=== PATIENT | female | born 1955 | race Caucasian/White ===

== ENCOUNTER → 2017-02-14 | Outpatient (REF) | payer OTHER | LOC: M SFHCWAGY 14:15 | PROVIDERS: ATTEND Nurse Practitioner Family | DX: Z12.4 Encounter for screening for malignant neoplasm of cervix (principal) ==

== ENCOUNTER → 2017-02-14 | Outpatient (CLI) | payer OTHER ==
--- NOTE | 2017-02-14 14:23 | REPMRS ---
Patient History The patient states she had a clinical breast exam in 02/2017. Patient is postmenopausal. Family history of pancreatic cancer in father at age 50 or over, colorectal cancer in maternal cousin, and colorectal cancer in maternal uncle. Digital Woman Screen Mammo: February 14, 2017 - Exam #: [id number] Bilateral CC and MLO view(s) were taken. Technologist: Gwendolyn Dunlap Technologist Prior study comparison: May 10, 2014, digital woman screen mammo performed at [facility]. March 16, 2013, digital woman screen mammo performed at [facility]. July 25, 2010, bilateral bilat screen digital mammo performed at [facility]. FINDINGS: The breast tissue is almost entirely fat. There has been no change in the appearance of the mammogram from the prior studies. There is no interval development of dominant mass, architectural distortion, or clustered microcalcification typical of malignancy. ASSESSMENT: BI-RADS/ACR category 1 mammogram. Negative. Recommendation Routine screening mammogram of both breasts in 1 year (for women over age 40). This mammogram was interpreted with the aid of an FDA-approved computer-aided dectection system. Electronically Signed By: Kvng Arboleda MD 02/14/17 [id number]
== END ==
LOC: M WHC 13:05
PROVIDERS: ATTEND Nurse Practitioner Family
DX: Z12.31 Encounter for screening mammogram for malignant neoplasm of breast (principal); Z78.0 Asymptomatic menopausal state

== ENCOUNTER 2017-05-05 13:37 | Outpatient (RCR) | payer OTHER | END 2017-05-08 | LOC: M PT 13:37 | PROVIDERS: ATTEND Physician Assistant | DX: Z51.89 Encounter for other specified aftercare (principal); M75.41 Impingement syndrome of right shoulder ==

== ENCOUNTER 2017-05-16 12:40 | Emergency (ER) | payer OTHER ==
[~2017-05-16] VITALS: Ht 162.6 cm; Wt 97.7 kg
[2017-05-16] MEDS ORDERED: SING10TA32 PO (12:50)
[2017-05-16] MEDS ORDERED: ZOCO80TA PO (12:50)
[2017-05-16] MEDS ORDERED: GLUC1CAP9 PO (12:50)
[2017-05-16] MEDS ORDERED: MULT1CHW39 PO (12:50)
[2017-05-16] MEDS ORDERED: XYZA5TAB2 PO (12:50)
[2017-05-16] MEDS ORDERED: VITA250L PO (12:50)
[2017-05-16] MEDS ORDERED: CVS20TAB PO (12:50)
--- NOTE | 2017-05-16 14:13 | REP ---
Clinical: Trauma. Technique: AP, lateral, bilateral oblique and sunrise views of the right knee. Comparison: 01/23/2016. Findings: Advanced, progressive tricompartmental osteoarthritic degenerative changes are appreciated. Findings include joint space narrowing, subchondral sclerosis, osteophytosis and cortical irregularity. A small suprapatellar effusion cannot be excluded. There is no evidence for acute fracture or dislocation. Impression: Tricompartmental osteoarthritic degenerative changes. No acute fracture or dislocation. Signed by Tc Vaca MD 05/16/2017 02:05 P
[2017-05-16] MEDS ORDERED: PERC5TAB12 PO (14:18)
[2017-05-16 14:27] VITALS: BP 118/73
== END 2017-05-16 14:37 | disposition home or self-care (01) ==
LOC: M ED 12:40
DX: M23.91 Unspecified internal derangement of right knee (principal); X50.9XXA Other and unspecified overexertion or strenuous movements or postures, initial encounter; Y92.019 Unspecified place in single-family (private) house as the place of occurrence of the external cause; Y93.89 Activity, other specified; Y99.8 Other external cause status; D64.9 Anemia, unspecified; Z98.0 Intestinal bypass and anastomosis status; Z79.899 Other long term (current) drug therapy

== ENCOUNTER 2017-06-06 11:00 | Outpatient (RCR) | payer OTHER ==
[~2017-06-06 11:00] MED LIST: CVS20TAB PO; GLUC1CAP9 PO; MULT1CHW39 PO; PERC5TAB12 PO; SING10TA32 PO; VITA250L PO; XYZA5TAB2 PO; ZOCO80TA PO
== END 2017-06-07 ==
LOC: M PT 11:00
PROVIDERS: ATTEND Orthopaedic Surgery
DX: Z51.89 Encounter for other specified aftercare (principal); M75.41 Impingement syndrome of right shoulder

== ENCOUNTER 2017-06-25 07:00 | Outpatient (RCR) | payer OTHER | END 2017-07-08 | LOC: M PT 07:00 | PROVIDERS: ATTEND Orthopaedic Surgery | DX: Z51.89 Encounter for other specified aftercare (principal); M75.41 Impingement syndrome of right shoulder; S83.8X1A Sprain of other specified parts of right knee, initial encounter ==

== ENCOUNTER → 2018-04-14 | Outpatient (REF) | payer OTHER | LOC: M LAB REF 12:47 | DX: R30.0 Dysuria (principal) ==

== ENCOUNTER → 2018-07-28 | Outpatient (CLI) | payer OTHER | LOC: M WHC 10:59 | DX: Z12.31 Encounter for screening mammogram for malignant neoplasm of breast (principal) | CPT/HCPCS: 77067 ==

== ENCOUNTER 2019-02-08 06:55 | Day surgery (SDC) | payer MEDICARE ==
[~2019-02-08] VITALS: Ht 162.6 cm; Wt 97.5 kg
[~2019-02-08 06:55] MED LIST changes: +ACET-897 PO; +BIOT1CAP2 PO; +CIDA500T2 PO; +COQ-100C5 PO; -CVS20TAB PO; +LEVOTAB10 PO; +MAGN400C PO; -MULT1CHW39 PO; +MULT200T7 PO; +NS 1,000 ML IV ONE; +OMEP20TA9 PO; +PRAV80TA2 PO; +PROAAER10 INH; +SOMA350T PO; +TRAM50TA2 PO
[2019-02-08] MEDS ORDERED: LIDOCAINE 2% INJ 100 MG/5 ML SDV (FOR ANES.) As Ordered ONE (07:02)
[2019-02-08] MEDS ORDERED: PROPOFOL 200 MG/20 ML VIAL As Ordered ONE (07:02)
--- NOTE | 2019-02-08 08:16 | ROOR ---
Patient Name: Meche Pepe Procedure Date: 02/08/2019 7:55 AM Date of : 1955 Age: 63 Room: [facility] Gender: Female Note Status: Finalized Procedure: Colonoscopy Indications: Colon cancer screening in patient at increased risk: Family history of colorectal cancer in multiple 2nd degree relatives Providers: Steven NGUYEN MD Referring MD: MARION SAENZ MD Requesting Provider: Medicines: Monitored Anesthesia Care Complications: No immediate complications. Procedure: Pre-Anesthesia Assessment: - The heart rate, respiratory rate, oxygen saturations, blood pressure, adequacy of pulmonary ventilation, and response to care were monitored throughout the procedure. The Colonoscope was introduced through the anus and advanced to the terminal ileum, with identification of the appendiceal orifice and IC valve. The colonoscopy was performed without difficulty. The patient tolerated the procedure well. The quality of the bowel preparation was good. Findings: The perianal and digital rectal examinations were normal. Mild sigmoid diverticulosis and small internal hemorrhoids. The exam was otherwise without abnormality on direct and retroflexion views. Impression: - Minimal sigmoid diverticulosis and small internal hemorrhoids. - The colon examination was otherwise normal on direct and retroflexion views. - No specimens collected. Recommendation: - Repeat colonoscopy in 5 years for screening purposes. Steven Nguyen MD Steven NGUYEN MD 02/08/2019 8:15:58 AM Electronically signed by Steven NGUYEN MD Number of Addenda: 0 Note Initiated On: 02/08/2019 7:55 AM Estimated Blood Loss: Estimated blood loss: none.
[2019-02-08 08:40] VITALS: BP 121/69
== END 2019-02-08 08:42 | disposition home or self-care (01) ==
LOC: M OPP 06:55
PROVIDERS: ATTEND Internal Medicine Gastroenterology
DX: K64.8 Other hemorrhoids (principal); K57.30 Diverticulosis of large intestine without perforation or abscess without bleeding; Z12.11 Encounter for screening for malignant neoplasm of colon; Z80.0 Family history of malignant neoplasm of digestive organs

== ENCOUNTER 2019-02-17 10:38 | Outpatient (RCR) | payer MEDICARE ==
[2019-02-24] MEDS ORDERED: SM HTAB3 PO (08:16)
[2019-02-24] MEDS ORDERED: ONE-1TAB PO (08:16)
== END 2019-03-07 ==
LOC: M PT 10:38
PROVIDERS: ATTEND Orthopaedic Surgery
DX: Z01.812 Encounter for preprocedural laboratory examination (principal); M17.11 Unilateral primary osteoarthritis, right knee

== ENCOUNTER → 2019-02-17 | Outpatient (CLI) | payer MEDICARE ==
[~2019-02-17] MED LIST changes: -NS 1,000 ML IV ONE
--- NOTE | 2019-02-17 13:27 | REP ---
Chest two views HISTORY: Preop Comparison: 03/20/2009 The lungs are clear. The heart is normal in size. The pulmonary vasculature is normal in appearance. The bony structure is intact. IMPRESSION: No acute disease. Electronically Signed by Jaime Olson MD 02/17/2019 01:19 P
[2019-02-17 13:31] LABS: HEMATOCRIT 42.2 % (36.0-47.0); HEMOGLOBIN 13.9 g/dl (12.0-15.5); MEAN CORPUSCULAR HGB CONC 32.9 g/dl (32.0-36.5); MEAN CORPUSCULAR VOLUME 100.2 fl (80.0-96.0); PLATELET COUNT, AUTOMATED 255 10^3/uL (150-450); RED BLOOD COUNT 4.21 10^6/uL (4.00-5.40); WHITE BLOOD COUNT 4.5 10^3/uL (4.0-10.0)
[2019-02-17 13:46] LABS: INR 0.94; PROTHROMBIN TIME 12.7 SECONDS (12.1-14.4)
[2019-02-17 13:56] LABS: APPEARANCE, URINE HAZY (CLEAR); BACTERIA, URINE AUTO NEGATIVE (NEGATIVE); BILIRUBIN, URINE AUTO NEGATIVE (NEGATIVE); BLOOD, URINE BLOOD NEGATIVE (NEGATIVE); CALCIUM OXALATE CRYSTALS SMALL; COLOR, URINE YELLOW (YELLOW); GLUCOSE, URINE (UA) AUTO NEGATIVE (NEGATIVE); KETONE, URINE AUTO NEGATIVE (NEGATIVE); LEUKOCYTE ESTERASE, URINE AUTO NEGATIVE (NEGATIVE); MUCUS, URINE SMALL (NEGATIVE); NITRITE, URINE AUTO NEGATIVE (NEGATIVE); PROTEIN, URINE AUTO NEGATIVE (NEGATIVE); RBC, URINE AUTO 1 /HPF (0-3); SPECIFIC GRAVITY URINE AUTO 1.026 (1.002-1.035); SQUAMOUS EPITHELIAL CELL UR AU 0 /HPF (0-6); UROBILINOGEN, URINE AUTO 0.2 mg/dL (0.0-2.0); WBC, URINE AUTO 1 /HPF (0-3)
[2019-02-17 14:04] LABS: ALT/SGPT 26 U/L (12-78); BILIRUBIN,TOTAL 0.6 MG/DL (0.2-1.0); BLOOD UREA NITROGEN 18 MG/DL (7-18); CALCIUM LEVEL 9.1 MG/DL (8.8-10.2); CARBON DIOXIDE LEVEL 28 MEQ/L (21-32); CHLORIDE LEVEL 108 MEQ/L (98-107); CREATININE FOR GFR 0.79 MG/DL (0.55-1.30); GLOMERULAR FILTRATION RATE > 60.0 (>45); GLUCOSE, FASTING 100 MG/DL (70-100); POTASSIUM SERUM 4.2 MEQ/L (3.5-5.1); SODIUM LEVEL 144 MEQ/L (136-145); TOTAL PROTEIN 6.6 GM/DL (6.4-8.2)
[2019-02-17 14:46] LABS: ERYTHROCYTE SEDIMENTATION RATE 11 mm/hr (0-30)
--- NOTE | 2019-02-18 08:14 | ECGEPIP ---
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
== END ==
LOC: M LAB 12:21
PROVIDERS: ATTEND Orthopaedic Surgery
DX: Z01.812 Encounter for preprocedural laboratory examination (principal); M17.11 Unilateral primary osteoarthritis, right knee; I45.10 Unspecified right bundle-branch block

== ENCOUNTER 2019-03-10 07:30 | Inpatient (IN) | payer MEDICARE ==
--- NOTE | 2019-03-01 13:14 | HPE ---
DATE OF ADMISSION: 03/10/2019 HISTORY OF PRESENT ILLNESS: This is a pleasant female with recurrent right knee osteoarthritic pain. She has consented for a right total knee arthroplasty per Dr. Gerardo Ram. Medical optimization per Dr. Quintana's office; I am still awaiting documentation clearance. X-rays are consistent with advanced osteoarthritis. ALLERGIES: The patient reports emesis secondary to MACROBID. MEDICATION LIST: Includes: - omeprazole 20 mg - Xyzal 5 mg - Singulair 10 mg - multivitamins - glucosamine - vitamin B12 5000 mcg - soma 350 mg - ProAir HFA 108 (90 base) mcg/ACT - pravastatin sodium 80 mg - Citracal Petites/vitamin D 200-250 mg-unit - Biotin 10,000 mcg - magnesium 400 mg - Co-Q 200 mg - Extra strength Tylenol 500 mg - allergy and sinus intense strength 25-10- 650 mg MEDICAL PROBLEM LIST: Includes right knee symptomatic osteoarthritis. Pure hypercholesteremia. Anemia. Gastroesophageal reflux disease. Obesity. SURGICAL HISTORY: de Quervain tendonitis release. Carpal tunnel right. Gastric bypass. Right arm lymphoma. Trigger finger left thumb. FAMILY HISTORY: Positive for diabetes, cancer, thyroid disease, arthritis, hypertension, hypercholesteremia. SOCIAL HISTORY: Denies smoking. Rare ethanol intake. REVIEW OF SYSTEMS: Denies chest pain, shortness of breath, dyspnea on exertion, fever, chills, malaise, upper respiratory or urinary tract symptoms. PREOPERATIVE LABORATORIES: Were reviewed as of 02/17/2019 via [facility]. MCV 100.2, chloride 108. Otherwise, laboratories made available to me were within normal limits. Please note that GFR was greater than [address] Ram's viewing. Chest x-ray, service date 02/17/2019, shows no acute disease read by Dr. Olson. Electrocardiogram (EKG): Sinus rhythm with marked sinus arrhythmia. Right bundle branch block as read by Dr. Steven Goins. The patient reports Dr. Quintana notes the bundle branch block is a new finding which they are aware of but does not circumvent her clearance. PHYSICAL EXAMINATION: Height 5 feet 3 inches, weight 214.8, temperature 97.7, blood pressure (BP) 120/62, pulse 62, respiration 18. She is a pleasant well-developed, well-nourished obese female in no acute distress. Alert and oriented times three. Mood and affect are appropriate. She is ambulating without overt antalgia. She has favoring the left lower extremity. Bilateral lower extremity skin intact. Benign noninfectious looking. Right knee tenderness about the joint line with crepitance to flexion and extension. Bowels soft, nontender, sounds times four. Chest rises symmetrically. Regular rate and rhythm. Lungs: Clear to auscultation. Neck: Supple. Negative jugular venous distention (JVD) or bruits. Normocephalic. IMPRESSION: 1. Right knee symptomatic degenerative joint disease (DJD). 2. The patient consented for a right total knee arthroplasty per Dr. Gerardo Ram. 3. Medical optimization with Dr. Quintana on 02/24/2019, which we are awaiting clearance note. 4. 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 5. Sequential compression device (SCD) and thromboembolic deterrents (TEDs) in OR. MTDD
[~2019-03-10] VITALS: Ht 162.6 cm; Wt 98.4 kg
[2019-03-10] VITALS (7 sets, daily range): BP systolic 106–128; BP diastolic 64–74
[~2019-03-10 07:30] MED LIST changes: +CelecoXIB (CeleBREX) 100 MG CAP PO ONE; +LIDOCAINE 1% MDV 20ML VIAL SQ PRN; +LR 1,000 ML IV ONE; +ONE-1TAB PO; +PERCOCET 5MG/325MG TAB PO ONE; +PREGABALIN 75 MG CAP(LYRICA) PO ONE; +SM HTAB3 PO; +ceFAZolin SOD 1 GM in D5W MINI-BAG PLUS 50 ML IV ONE
[2019-03-10] MEDS ORDERED: ceFAZolin SOD 1 GM in D5W MINI-BAG PLUS 50 ML IV ONE (08:15)
[2019-03-10] MEDS ORDERED: fentaNYL 100 MCG/2 ML INJECTION (J3010) As Ordered ONE ×2 (08:32→08:41)
[2019-03-10] MEDS ORDERED: LIDOCAINE 2% INJ 100 MG/5 ML SDV (FOR ANES.) As Ordered ONE (08:32)
[2019-03-10] MEDS ORDERED: PROPOFOL 200 MG/20 ML VIAL As Ordered ONE ×2 (08:32→12:14)
[2019-03-10] MEDS ORDERED: MIDAZOLAM INJ 2 MG/2 ML VIAL (J2250) As Ordered ONE ×2 (08:32→08:41)
[2019-03-10] MEDS ORDERED: ePHEDrine SULFATE 25 MG/5 ML(5MG/ML) SYRINGE As Ordered ONE (08:39)
[2019-03-10] MEDS ORDERED: BUPIVACAINE HCL 0.25% 30 ML VIAL As Ordered ONE (08:41)
[2019-03-10] MEDS ORDERED: BUPIVACAINE HCL 0.25% 10 ML VIAL As Ordered ONE (08:42)
[2019-03-10] MEDS ORDERED: **UNRESOLVED NON-FORMULARY MED ORDER XX SCH (09:00)
[2019-03-10] MEDS ORDERED: fentaNYL 100 MCG/2 ML INJECTION (J3010) IV ONE (10:31)
[2019-03-10] MEDS ORDERED: MIDAZOLAM INJ 2 MG/2 ML VIAL (J2250) IV ONE (10:32)
[2019-03-10] MEDS ORDERED: BUPIVACAINE/EPIN 0.25% 30 ML VIAL As Ordered ONE (10:36)
[2019-03-10] MEDS ORDERED: EPINEPHrine INJ 1 MG/ML 1ML AMP As Ordered ONE (10:36)
[2019-03-10] MEDS ORDERED: TRANEXAMIC ACID 100 MG/ML 10ML VIAL As Ordered ONE (10:36)
[2019-03-10] MEDS ORDERED: ceFAZolin 1GM INJ (J0690 PER 500MG) As Ordered ONE (10:36)
[2019-03-10] MEDS ORDERED: BUPIVACAINE LIPOSOME/PF 1.3% 20ML VIAL (13.3MG/ML)(EXPAREL)(C9290 PER1MG) As Ordered ONE (10:37)
[2019-03-10] MEDS ORDERED: LIDOCAINE 1% MDV 20ML VIAL ONE (10:54)
[2019-03-10] MEDS ORDERED: BUPIVACAINE HCL 0.5% 30 ML VIAL As Ordered ONE (12:51)
[2019-03-10] MEDS ORDERED: KETOROLAC 60 MG/2 ML VIAL (J1885) As Ordered ONE (12:52)
[2019-03-10] MEDS ORDERED: ONDANSETRON 4MG/2ML VIAL (J2405) As Ordered ONE (12:52)
[2019-03-10] MEDS ORDERED: PROMETHAZINE INJ 25 MG/ML VIAL (J2550) IV PRN ×2 (14:00→14:15)
[2019-03-10] MEDS ORDERED: NORTRIPTYLINE 10 MG CAP PO PRN (14:00)
[2019-03-10] MEDS ORDERED: FLEET ENEMA PR PRN (14:00)
[2019-03-10] MEDS ORDERED: ACETAMINOPHEN TAB 650MG DOSE (2X325MG) PO PRN ×2 (14:00)
[2019-03-10] MEDS ORDERED: oxyCODONE 5MG TAB PO PRN (14:15)
[2019-03-10] MEDS ORDERED: METOCLOPRAMIDE INJ 10MG/2ML VIAL (J2765) IV PRN (14:15)
[2019-03-10] MEDS ORDERED: LR 1,000 ML IV SCH (14:15)
[2019-03-10] MEDS ORDERED: ALBUTEROL 90 MCG/ACT 8GM HFA INHALER INH PRN (14:15)
[2019-03-10] MEDS ORDERED: fentaNYL 100 MCG/2 ML INJECTION (J3010) IV PRN (14:15)
--- NOTE | 2019-03-10 14:32 | REP ---
Clinical: Status post knee replacement. Technique AP and cross-table lateral views. Findings: The patient is status post right knee replacement with normal positioning and appearance to the femoral and tibial components. Overlying postsurgical changes appreciated. Impression: Status post right knee replacement. Electronically Signed by Tc Vaca MD 03/10/2019 02:23 P
--- NOTE | 2019-03-10 14:53 | CR.PDOC ---
General Date of Consultation: Mar 10, 2019 Referring Provider: A Consultation REASON FOR CONSULTATION/CHIEF COMPLAINT: Medical management. HISTORY OF PRESENT ILLNESS: This is a pleasant female with recurrent right knee osteoarthritic pain. Today she got the right total knee arthroplasty by orthopedics and we have been consulted for medical management. The patient does not have much medical history except for allergies and she recently had a PFT done which ruled out any asthma, she has a past medical history of osteoarthritis, GERD. She denies any complaint at this time. Denies any chest pain, denies any shortness of breath. Denies any fever, rigors or chills. The patient stated that she has never suffered from any clots in the past. ALLERGIES: The patient reports emesis secondary to MACROBID. MEDICATION LIST: Reviewed MEDICAL PROBLEM LIST: Includes right knee symptomatic osteoarthritis. Pure hypercholesteremia. Anemia. Gastroesophageal reflux disease. Obesity. SURGICAL HISTORY: de Quervain tendonitis release. Carpal tunnel right. Gastric bypass. Right arm lymphoma. Trigger finger left thumb. FAMILY HISTORY: Positive for diabetes, cancer, thyroid disease, arthritis, hypertension, hypercholesteremia. SOCIAL HISTORY: Denies smoking. Rare ethanol intake. REVIEW OF SYSTEMS: Denies chest pain, shortness of breath, dyspnea on exertion, fever, chills, malaise, upper respiratory or urinary tract symptoms. Electrocardiogram (EKG): Sinus rhythm with marked sinus arrhythmia. Right bundle branch block as read by Dr. Steven Goins. The patient reports Dr. Quintana notes the bundle branch block is a new finding which they are aware of but does not circumvent her clearance. PHYSICAL EXAMINATION: Height 5 feet 3 inches, weight 214.8, temperature 97.7, blood pressure (BP) 120/62, pulse 62, respiration 18. Gen. examination She is a pleasant well-developed, well-nourished obese female in no acute distress. Alert and oriented times three. Mood and affect are appropriate. Abdomen. Bowels soft, nontender, bowel sounds present Chest . Rises symmetrically. No rhonchi, no rales CVS : rate and rhythm regular. Lungs: Neck: Supple. Negative jugular venous distention (JVD) or bruits. Normocephalic. Extremities: Left knee in surgical dressing. The dressing looks dry. No foul- smelling discharge noticed. The right knee has no effusion, but mild crepitus. Nonpitting edema in bilateral lower extremities. Neurological: Cranial nerves II through XII are grossly normal. Vital Signs Date Time Temp Pulse Resp B/P (MAP) Pulse Ox O2 Delivery O2 Flow Rate FiO2 03/10/19 14:10 66 16 123/59 (80) 95 03/10/19 13:55 97.3 69 16 109/62 (78) 96 03/10/19 13:50 82 18 119/61 (80) 96 03/10/19 13:40 80 16 110/64 (79) 96 03/10/19 13:25 98.0 88 12 108/66 (80) 99 03/10/19 10:30 87 16 129/66 (87) 93 03/10/19 10:15 94 16 126/68 (87) 99 3 03/10/19 09:58 93 16 141/75 (97) 99 03/10/19 09:04 97.7 94 18 139/70 (93) 99 03/10/19 08:45 18 Assessment and plan 1. Right knee symptomatic degenerative joint disease (DJD). Status post total arthroplasty: Management as per orthopedics. Pain as per orthopedics. Activity as per orthopedics. DVT prophylaxis as per orthopedics. 2. EKG with right bundle branch block. We will get a baseline 2-D echo. 3. GERD. Continue PPIs Again, pain control, activity, DVT prophylaxis as per orthopedics We will continue to follow the patient Thank you for consulting. Vital Signs/I&O Vital Signs Date Time Temp Pulse Resp B/P (MAP) Pulse Ox O2 Delivery O2 Flow Rate FiO2 03/10/19 14:10 66 16 123/59 (80) 95 03/10/19 13:55 97.3 03/10/19 10:15 3 Allergies Coded Allergies: NSAIDS (Non-Steroidal Anti-Inflamma (Verified Adverse Reaction, Intermediate, 03/10/19) due tp gastric bypass nitrofurantoin (Verified Adverse Reaction, Intermediate, severe vomiting, 03/10/19) Home Medications Scheduled Albuterol Sulfate (Proair Hfa) 8.5 Gm Hfa.aer.ad, 2 PUFF INH PRN, (Reported) Biotin (Biotin) 1 Mg Capsule, 1 MG PO DAILY, (Reported) Carisoprodol (Soma) 350 Mg Tablet, 350 MG PO TIDP, (Reported) Cyanocobalamin (Vitamin B-12) (Vitamin B-12) 250 Mcg Damaris, 250 MCG PO DAILY, (Reported) Glucosamine/Chondr Sparks A Sod (Cidaflex Tablet) 1 Each Tablet, 2 TAB PO DAILY, (Reported) Levocetirizine Dihydrochloride (Levocetirizine Dihydrochloride) 5 Mg Tablet, 5 MG PO DAILY, (Reported) Magnesium Oxide (Magnesium) 400 Mg Capsule, 400 MG PO DAILY, (Reported) Montelukast Sodium (Singulair) 10 Mg Tab, 10 MG PO DAILY, (Reported) Multivitamin with Minerals (Hair, Skin and Nails) 1 Each Tablet, 1 TAB PO DAILY, (Reported) Multivitamin/Ferrous Sulfate (One-Daily Elgwe-Zfa-Wdia Tab) 18 Mg Tablet, 1 TAB PO DAILY, (Reported) Omeprazole (Omeprazole) 20 Mg Tab, 20 MG PO DAILY, (Reported) Pravastatin Sodium (Pravastatin Sodium) 80 Mg Tablet, 80 MG PO DAILY, (Reported) Tramadol HCl (Tramadol HCl) 50 Mg Tablet, 50 MG PO PRN, (Reported) Ubidecarenone (Coq-10) 100 Mg Capsule, 200 MG PO BID, (Reported) Scheduled PRN Acetaminophen (Tylenol Extra Strength) 500 Mg Tablet, 1,000 MG PO BID PRN for PAIN, (Reported) SHANNAN CASTLE MD Mar 10, 2019 14:53
[2019-03-10 16:11] LABS: BLOOD UREA NITROGEN 15 MG/DL (7-18); CALCIUM LEVEL 8.2 MG/DL (8.8-10.2); CARBON DIOXIDE LEVEL 30 MEQ/L (21-32); CHLORIDE LEVEL 108 MEQ/L (98-107); CREATININE FOR GFR 0.72 MG/DL (0.55-1.30); GLOMERULAR FILTRATION RATE > 60.0 (>45); GLUCOSE, FASTING 99 MG/DL (70-100); POTASSIUM SERUM 4.2 MEQ/L (3.5-5.1); SODIUM LEVEL 144 MEQ/L (136-145)
[2019-03-10] MEDS ORDERED: HYDROMORPHONE HCL 0.5 MG/ 0.5 ML SYRINGE (J1170 PER 1) IV PRN (16:15)
[2019-03-10] MEDS: D5W/LR 1,000 ML IV SCH (16:49)
[2019-03-10] MEDS: HYDROMORPHONE HCL 0.5 MG/ 0.5 ML SYRINGE (J1170 PER 1) IV PRN ×2 (16:49→20:57)
[2019-03-10] MEDS ORDERED: PILL CUTTER 1 EACH XX PRN (17:30)
[2019-03-10] MEDS: PERCOCET 5MG/325MG TAB PO PRN (18:49)
--- NOTE | 2019-03-10 19:16 | ECHO ---
DATE OF PROCEDURE: 03/10/2019 AGE: 63 GENDER: Female HEIGHT: 64 inches WEIGHT: 216 pounds BODY SURFACE AREA: 2.02 m2 PATIENT LOCATION: Inpatient [address] [place] [address], room 5144 REFERRING PHYSICIAN: Michael Lang MD INDICATION: Abnormal EKG. 2-D MEASUREMENTS: RV: 3.5 cm LV: 4.4 cm Septum: 0.9 cm Posterior wall: 0.9 cm Aortic root: 3.0 cm LA: 2.7 cm LVEF: 75% DOPPLER MEASUREMENTS: AV: 1.7 m/s LVOT: 1.1 m/s LVOT diameter: 2.0 cm MV-E: 55, A: 75, EA ratio: 0.7 Early mitral deceleration time: 183 ms E prime: 6.2, A prime: 14, E/E prime ratio: 8.9 PCWP: 11 mmHg PV: 1.1 m/s Pulmonary artery acceleration time: 110 ms RVSP: 41 - 46 mmHg IVC: 2.1 cm COMMENTS Normal sinus rhythm with right bundle branch block. Technically, somewhat challenging study in light of the patient's body habitus, but diagnostically useful information was still obtained. M-mode and two-dimensional echocardiography was performed with pulsed, continuous wave, color flow and tissue Doppler studies. Normal left ventricular size and wall thickness with hyperkinetic wall motion. Normal left atrial size with Doppler evidence of a degree of impaired LV diastolic function, but currently normal estimated mean left atrial pressure. Normal right heart chamber sizes and motion with Doppler evidence of moderate pulmonary hypertension. IVC size upper limits of normal with reduced respiratory collapse in keeping with an elevated central venous pressure. Mild aortic valvular sclerosis without functional abnormality. Normal aortic dimensions Normal-appearing mitral valve with very mild insufficiency (physiologic). Normal appearing tricuspid valve with at least mild insufficiency. No apparent intracardiac mass or pericardial effusion.
[2019-03-10] MEDS: CETIRIZINE (ZyrTEC) 10 MG TAB PO SCH (20:56)
[2019-03-10] MEDS: PRAVASTATIN 20 MG TAB PO SCH (20:56)
[2019-03-10] MEDS: MONTELUKAST 10 MG TAB PO SCH (20:56)
[2019-03-10] MEDS: OMEPRAZOLE 20 MG CAP PO SCH (20:56)
[2019-03-10 21:34] LABS: BLOOD UREA NITROGEN 15 MG/DL (7-18); CALCIUM LEVEL 7.9 MG/DL (8.8-10.2); CARBON DIOXIDE LEVEL 25 MEQ/L (21-32); CHLORIDE LEVEL 109 MEQ/L (98-107); CREATININE FOR GFR 0.73 MG/DL (0.55-1.30); GLOMERULAR FILTRATION RATE > 60.0 (>45); GLUCOSE, FASTING 131 MG/DL (70-100); POTASSIUM SERUM 4.1 MEQ/L (3.5-5.1); SODIUM LEVEL 142 MEQ/L (136-145)
[2019-03-11] MEDS: HYDROMORPHONE HCL 0.5 MG/ 0.5 ML SYRINGE (J1170 PER 1) IV PRN (02:39)
[2019-03-11] MEDS: D5W/LR 1,000 ML IV SCH (02:39)
[2019-03-11 03:00] VITALS: BP 136/72
[2019-03-11 06:00] VITALS: BP 130/70
[2019-03-11] MEDS: PERCOCET 5MG/325MG TAB PO PRN ×4 (06:04→20:43)
[2019-03-11] MEDS ORDERED: PERC5TAB12 PO (06:25)
[2019-03-11] MEDS ORDERED: XARE10TA PO (06:25)
[2019-03-11 06:40] LABS: BASO % 0.3 % (0.0-1.0); EOS % 0.5 % (0.0-3.0); HEMOGLOBIN 10.5 g/dl (12.0-15.5); LYMPH # 1.4 10^3/uL (1.5-4.5); LYMPH % 23.4 % (24.0-44.0); MEAN CORPUSCULAR HEMOGLOBIN 33.4 pg (27.0-33.0); MEAN CORPUSCULAR HGB CONC 32.8 g/dl (32.0-36.5); MEAN CORPUSCULAR VOLUME 101.9 fl (80.0-96.0); MONO # 0.7 10^3/uL (0.0-0.8); MONO % 11.5 % (0.0-5.0); NEUTROPHILS # 3.8 10^3/uL (1.8-7.7); NEUTROPHILS % 64.1 % (36.0-66.0); PLATELET COUNT, AUTOMATED 184 10^3/uL (150-450); RED BLOOD COUNT 3.14 10^6/uL (4.00-5.40); WHITE BLOOD COUNT 5.9 10^3/uL (4.0-10.0)
[2019-03-11 06:49] LABS: INR 1.05; PROTHROMBIN TIME 13.4 SECONDS (11.8-14.0)
[2019-03-11 06:59] LABS: BLOOD UREA NITROGEN 11 MG/DL (7-18); CALCIUM LEVEL 7.9 MG/DL (8.8-10.2); CARBON DIOXIDE LEVEL 29 MEQ/L (21-32); CHLORIDE LEVEL 105 MEQ/L (98-107); CREATININE FOR GFR 0.64 MG/DL (0.55-1.30); GLOMERULAR FILTRATION RATE > 60.0 (>45); GLUCOSE, FASTING 128 MG/DL (70-100); POTASSIUM SERUM 4.1 MEQ/L (3.5-5.1); SODIUM LEVEL 139 MEQ/L (136-145)
[2019-03-11] MEDS: METAMUCIL (PSYLLIUM) PACKET PO SCH (08:44)
[2019-03-11] MEDS: CARISOPRODOL 350 MG TAB PO SCH (08:44)
[2019-03-11] MEDS: MAGNESIUM OXIDE 400 MG TAB (MAG-OX) PO SCH (08:44)
[2019-03-11] MEDS: MOM 30ML SUSPENSION UDC PO SCH (08:45)
[2019-03-11] MEDS: MIRALAX *UNIT DOSE* 17GM PACKET PO SCH (08:45)
--- NOTE | 2019-03-11 10:30 | IPNPDOC ---
Text Note Date of Service The patient was seen on 03/11/19. NOTE Patient was seen and examined by me this morning. The patient states that her knee pain has worsened and she is getting Dilaudid for that which is helping PHYSICAL EXAMINATION: Gen. examination She is a pleasant well-developed, well-nourished obese female in no acute distress. Alert and oriented times three. Mood and affect are appropriate. Abdomen. Bowels soft, nontender, bowel sounds present Chest . Rises symmetrically. No rhonchi, no rales CVS : rate and rhythm regular. Lungs: Neck: Supple. Negative jugular venous distention (JVD) or bruits. Normocephalic. Extremities: Left knee in surgical dressing. The dressing looks dry. No foul- smelling discharge noticed. The right knee has no effusion, but mild crepitus. Nonpitting edema in bilateral lower extremities. Neurological: Cranial nerves II through XII are grossly normal. Assessment and plan 1. Right knee symptomatic degenerative joint disease (DJD). Status post total arthroplasty, postoperative day 1 : Management as per orthopedics. Pain as per orthopedics. Activity as per orthopedics. DVT prophylaxis as per orthopedics and currently patient has been put on Zaroxolyn. 2. EKG with right bundle branch block. Baseline 2-D echo was done, which does not reveal any systolic dysfunction or any hypokinesis. She will require outpatient follow-up with cardiology 3. GERD. Continue PPIs Again, pain control, activity, DVT prophylaxis as per orthopedics We will continue to follow the patient Thank you for consulting. VS,Ricardobone, I+O VS, Fishbone, I+O Laboratory Tests 03/10/19 15:32 Calcium Level 8.2 L 03/10/19 21:03 Calcium Level 7.9 L 03/11/19 06:21 Calcium Level 7.9 L, Red Blood Count 3.14 L, Mean Corpuscular Volume 101.9 H, Mean Corpuscular Hemoglobin 33.4 H, Mean Corpuscular Hemoglobin Concent 32.8, Red Cell Distribution Width 12.4, Neutrophils (%) (Auto) 64.1, Lymphocytes (%) (Auto) 23.4 L, Monocytes (%) (Auto) 11.5 H, Eosinophils (%) (Auto) 0.5, Basophils (%) (Auto) 0.3, Neutrophils # (Auto) 3.8, Lymphocytes # (Auto) 1.4 L, Monocytes # (Auto) 0.7, Eosinophils # (Auto) 0.0, Basophils # (Auto) 0.0 Vital Signs Date Time Temp Pulse Resp B/P (MAP) Pulse Ox O2 Delivery O2 Flow Rate FiO2 03/11/19 06:40 12 03/11/19 06:00 99.0 96 130/70 (90) 96 03/11/19 03:00 2.0 I&O- Last 24 Hours up to 6 AM 03/11/19 06:00 Intake Total 2825 ml Output Total 30 ml Balance 2795 ml SHANNAN CASTLE MD Mar 11, 2019 10:30
[2019-03-11 14:00] VITALS: BP 125/69
[2019-03-11] MEDS: RIVAROXABAN 10 MG TAB (XARELTO) PO SCH (18:18)
[2019-03-11] MEDS: CETIRIZINE (ZyrTEC) 10 MG TAB PO SCH (20:44)
[2019-03-11] MEDS: OMEPRAZOLE 20 MG CAP PO SCH (20:44)
[2019-03-11] MEDS: PRAVASTATIN 20 MG TAB PO SCH (20:44)
[2019-03-11] MEDS: MONTELUKAST 10 MG TAB PO SCH (20:44)
[2019-03-11] MEDS: MORPHINE 15 MG SA TAB PO SCH (21:26)
[2019-03-11 21:38] VITALS: BP 130/69
[2019-03-12] MEDS: PERCOCET 5MG/325MG TAB PO PRN ×4 (04:19→22:16)
[2019-03-12 06:15] VITALS: BP 129/69
[2019-03-12 06:27] LABS: BASO % 0.2 % (0.0-1.0); EOS # 0.1 10^3/uL (0.0-0.50); EOS % 1.2 % (0.0-3.0); HEMOGLOBIN 10.2 g/dl (12.0-15.5); LYMPH # 1.1 10^3/uL (1.5-4.5); LYMPH % 18.6 % (24.0-44.0); MEAN CORPUSCULAR HEMOGLOBIN 33.6 pg (27.0-33.0); MEAN CORPUSCULAR HGB CONC 32.9 g/dl (32.0-36.5); MONO # 0.7 10^3/uL (0.0-0.8); MONO % 11.3 % (0.0-5.0); NEUTROPHILS # 4.1 10^3/uL (1.8-7.7); NEUTROPHILS % 68.4 % (36.0-66.0); PLATELET COUNT, AUTOMATED 184 10^3/uL (150-450); RED BLOOD COUNT 3.04 10^6/uL (4.00-5.40)
[2019-03-12 06:53] LABS: BLOOD UREA NITROGEN 7 MG/DL (7-18); CALCIUM LEVEL 8.1 MG/DL (8.8-10.2); CARBON DIOXIDE LEVEL 29 MEQ/L (21-32); CHLORIDE LEVEL 109 MEQ/L (98-107); CREATININE FOR GFR 0.58 MG/DL (0.55-1.30); GLOMERULAR FILTRATION RATE > 60.0 (>45); GLUCOSE, FASTING 121 MG/DL (70-100); POTASSIUM SERUM 3.8 MEQ/L (3.5-5.1); SODIUM LEVEL 142 MEQ/L (136-145)
--- NOTE | 2019-03-12 08:29 | REP ---
Clinical: Fever. Comparison: 02/17/2019. Findings: Trace linear atelectasis in the left lower lung zone noted. Remainder examination appears normal. No further consolidation, effusion, or pneumothorax. Mediastinum and cardiac silhouette normal. Skeletal structures intact. Impression: Trace linear plate-like atelectasis in the left lower lobe Electronically Signed by Tc Vaca MD 03/12/2019 08:21 A
[2019-03-12] MEDS: CARISOPRODOL 350 MG TAB PO SCH (08:33)
[2019-03-12] MEDS: MORPHINE 15 MG SA TAB PO SCH ×2 (08:33→20:26)
[2019-03-12] MEDS: METAMUCIL (PSYLLIUM) PACKET PO SCH (08:33)
[2019-03-12] MEDS: MAGNESIUM OXIDE 400 MG TAB (MAG-OX) PO SCH (08:33)
[2019-03-12] MEDS: MOM 30ML SUSPENSION UDC PO SCH (09:00)
[2019-03-12] MEDS: MIRALAX *UNIT DOSE* 17GM PACKET PO SCH (09:00)
--- NOTE | 2019-03-12 10:18 | IPNPDOC ---
Text Note Date of Service The patient was seen on 03/12/19. NOTE Patient was seen and examined by me this morning. The patient states that her knee pain has worsened and she is getting Dilaudid for that which is helping. She also spiked fever last night PHYSICAL EXAMINATION: Gen. examination She is a pleasant well-developed, well-nourished obese female in no acute distress. Alert and oriented times three. Mood and affect are appropriate. Abdomen. Bowels soft, nontender, bowel sounds present Chest . Rises symmetrically. No rhonchi, no rales CVS : rate and rhythm regular. Lungs: Neck: Supple. Negative jugular venous distention (JVD) or bruits. Normocephalic. Extremities: Left knee in surgical dressing. The dressing looks dry. No foul- smelling discharge noticed. The right knee has no effusion, but mild crepitus. Nonpitting edema in bilateral lower extremities. Neurological: Cranial nerves II through XII are grossly normal. Assessment and plan 1. Right knee symptomatic degenerative joint disease (DJD). Status post total arthroplasty, postoperative day 2 : Management as per orthopedics. Pain as per orthopedics. Activity as per orthopedics. DVT prophylaxis as per orthopedics and currently patient has been put on xaralto 2. EKG with right bundle branch block. Baseline 2-D echo was done, which does not reveal any systolic dysfunction or any hypokinesis. She will require outpatient follow-up with cardiology 3. GERD. Continue PPIs 4. Febrile episodes.: No overt signs of sepsis. Lungs are clear auscultation. No diarrhea. Blood cultures, urine cultures and a chest x-ray will be done. We'll hold off the antibiotics for now as it could be reactive after surgery. Again, pain control, activity, DVT prophylaxis as per orthopedics We will continue to follow the patient Thank you for consulting. VS,Fishbone, I+O VS, Fishbone, I+O Laboratory Tests 03/12/19 06:03 Red Blood Count 3.04 L, Mean Corpuscular Volume 102.0 H, Mean Corpuscular Hemoglobin 33.6 H, Mean Corpuscular Hemoglobin Concent 32.9, Red Cell Distribution Width 12.4, Neutrophils (%) (Auto) 68.4 H, Lymphocytes (%) (Auto) 18.6 L, Monocytes (%) (Auto) 11.3 H, Eosinophils (%) (Auto) 1.2, Basophils (%) (Auto) 0.2, Neutrophils # (Auto) 4.1, Lymphocytes # (Auto) 1.1 L, Monocytes # (Auto) 0.7, Eosinophils # (Auto) 0.1, Basophils # (Auto) 0.0, Calcium Level 8.1 L Vital Signs Date Time Temp Pulse Resp B/P (MAP) Pulse Ox O2 Delivery O2 Flow Rate FiO2 03/12/19 09:30 18 03/12/19 06:43 100.4 03/12/19 06:15 102 129/69 (89) 96 03/11/19 03:00 2.0 I&O- Last 24 Hours up to 6 AM 03/12/19 06:00 Intake Total 1955 ml Output Total 0 ml Balance 1955 ml SHANNAN CASTLE MD Mar 12, 2019 10:18
[2019-03-12 14:00] VITALS: BP 95/57
[2019-03-12] MEDS: RIVAROXABAN 10 MG TAB (XARELTO) PO SCH (17:44)
[2019-03-12 19:00] VITALS: BP 109/64
[2019-03-12] MEDS: PRAVASTATIN 20 MG TAB PO SCH (20:25)
[2019-03-12] MEDS: CETIRIZINE (ZyrTEC) 10 MG TAB PO SCH (20:25)
[2019-03-12] MEDS: OMEPRAZOLE 20 MG CAP PO SCH (20:25)
[2019-03-12] MEDS: MONTELUKAST 10 MG TAB PO SCH (20:25)
[2019-03-12 21:58] VITALS: BP 130/77
--- NOTE | 2019-03-12 22:12 | RO ---
DATE OF PROCEDURE: 03/10/2019 PREPROCEDURE DIAGNOSIS: Valgus osteoarthritis of the right knee. POSTPROCEDURE DIAGNOSIS: Valgus osteoarthritis of the right knee. PROCEDURE: Right total knee replacement, rotating platform posterior stabilized. SURGEON: Dr. Gerardo Ram MANUFACTURING INSPECTOR: Bennett Maciel PA-C ANESTHESIA: Spinal with block. ESTIMATED BLOOD LOSS: Less than 50 mL, replaced with crystalloid. No complications. COMPONENTS USED: Include a DePuy Attune knee system, rotating platform, posterior stabilize cemented size 6 mm spacer, 5 femoral component, 5 base plate component, 32 button component. INDICATIONS: Progressive discomfort in the right knee. Patient elects for operative intervention. Consent reviewed in detail including a sonal discussion of the pathology involved, the procedure proposed, alternatives including doing nothing, and risks including but not limited to pain, failure, infection, bleeding, blood clots, incomplete relief, need for more surgery and other issues. Patient wants to proceed. DESCRIPTION OF PROCEDURE: Identified in the holding area, site and side verified, brought to the operating room once the block was accomplished, spinal was accomplished, positioned, sterilely prepped and draped in the usual fashion for exposure. A time-out was accomplished. Next, began the surgical procedure. Leg was elevated, tourniquet was inflated to 250 mmHg. Tourniquet time was approximately 75 minutes. Next, incision made with a #10-blade, developed down through the skin and subcuticular tissues to the extensor mechanism of the knee. A medial parapatellar arthrotomy was accomplished. The extensor mechanism was everted. Infrapatellar fat pad was removed. Supracondylar soft tissue removed from the anterior femur. A modest release medially was accomplished because of the valgus arthritis. Next, patella was everted, the knee was placed flexed. Distal cutting guide was drilled and installed. Distal cuts were made. Mr. Maciel utilized the Hohmann retractors to protect collateral ligaments. The AP sizing guide installed, pins were drilled, 4-in-1 cutting block installed, pinned into place. Anterior, posterior and chamfer cuts were made. The guide was then removed. Next, tibial guide installed, pinned into place, 4 off the bad side, 1 based on the ankle. Drop vamsi utilized to verify alignment with the second ray, about 3 degrees slope. Next, posterior retractor and Hohmann retractors installed, cuts were made with the oscillating saw, proximal tibia removed. Lamina basting cleaner installed, meniscus removed, posterior osteophytes removed sharply in both compartments. Next, spacer blocks installed, 6 mm spacer seemed to fit most appropriately in flexion and extension. Next, once this was accomplished, trial base plate installed, broach guide installed, large drill utilized followed by tibial broach. The broach was left in place. Trial base plate was left in place. Trial components were installed, placed through a range of motion, 6 mm was stable in flexion as well as extension without any evidence of valgus or varus instability. Next, patella everted, posterior patellar cut made with an oscillating saw, 32 mm patella trialed, fit appropriately, good tracking. Next, all trial components removed. Mr. Maciel stepped to the back table to prepare the bone cement. I utilized pulse lavage to prepare the bone surfaces. Once the bone cement was the appropriate consistency, we cemented the knee replacement into place. It was tamped into place. Non-trial rotating platform component was installed. Excess cement had been cleared with curettes. We also had injected Exparel solution into the posterior capsule, now placed the knee in extension, injected Exparel solution around the anterior capsule of the knee and anterior structures. Once the cement had hardened, clamp removed, TXA solution placed in the knee, arthrotomy was closed with interrupted and Stratafix stitch. Deep dermis approximated with interrupted stitch, Prineo dressing applied. Tourniquet was deflated, and the patient was moved to the recovery room in good condition. For further details, please refer to the medical record.
[2019-03-13] MEDS ORDERED: XARE10TA PO (06:14)
[2019-03-13 06:17] VITALS: BP 131/75
[2019-03-13] MEDS: PERCOCET 5MG/325MG TAB PO PRN ×2 (06:33→12:59)
[2019-03-13] MEDS: MOM 30ML SUSPENSION UDC PO SCH (09:00)
[2019-03-13] MEDS: METAMUCIL (PSYLLIUM) PACKET PO SCH (09:00)
[2019-03-13] MEDS: CARISOPRODOL 350 MG TAB PO SCH (09:32)
[2019-03-13] MEDS: MAGNESIUM OXIDE 400 MG TAB (MAG-OX) PO SCH (09:32)
[2019-03-13] MEDS: MORPHINE 15 MG SA TAB PO SCH (09:33)
[2019-03-13] MEDS: MIRALAX *UNIT DOSE* 17GM PACKET PO SCH (09:34)
--- NOTE | 2019-03-13 09:51 | IPNPDOC ---
Text Note Date of Service The patient was seen on 03/13/19. NOTE Patient was seen and examined by me this morning. No new complaints. No fevers overnight PHYSICAL EXAMINATION: Gen. examination She is a pleasant well-developed, well-nourished obese female in no acute distress. Alert and oriented times three. Mood and affect are appropriate. Abdomen. Bowels soft, nontender, bowel sounds present Chest . Rises symmetrically. No rhonchi, no rales CVS : rate and rhythm regular. Lungs: Neck: Supple. Negative jugular venous distention (JVD) or bruits. Normocephalic. Extremities: Left knee in surgical dressing. The dressing looks dry. No foul- smelling discharge noticed. The right knee has no effusion, but mild crepitus. Nonpitting edema in bilateral lower extremities. Neurological: Cranial nerves II through XII are grossly normal. Assessment and plan 1. Right knee symptomatic degenerative joint disease (DJD). Status post total arthroplasty, postoperative day 3 : Management as per orthopedics. Pain as per orthopedics. Activity as per orthopedics. DVT prophylaxis as per orthopedics and currently patient has been put on xaralto 2. EKG with right bundle branch block. Baseline 2-D echo was done, which does not reveal any systolic dysfunction or any hypokinesis. She will require outpatient follow-up with cardiology 3. GERD. Continue PPIs 4. Febrile episodes.: No overt signs of sepsis. Lungs are clear auscultation. No diarrhea. Blood cultures negative so far, it could be reactive after surgery. The patient is medically optimized and cleared for discharge with follow-up with PCP Again, pain control, activity, DVT prophylaxis as per orthopedics We will sign off and please reconsult if needed Thank you for consulting. VS,Fishbone, I+O VS, Fishbone, I+O Vital Signs Date Time Temp Pulse Resp B/P (MAP) Pulse Ox O2 Delivery O2 Flow Rate FiO2 03/13/19 09:33 20 03/13/19 06:17 99.6 99 131/75 (93) 93 03/11/19 03:00 2.0 I&O- Last 24 Hours up to 6 AM 03/13/19 06:00 Intake Total 1220 ml Output Total 650 ml Balance 570 ml SHANNAN CASTLE MD Mar 13, 2019 09:51
--- NOTE | 2019-03-16 18:59 | DSES ---
DATE OF ADMISSION: 03/10/2019 DATE OF DISCHARGE: 03/13/2019 ADMISSION DIAGNOSIS: Valgus osteoarthritis of the right knee. OTHER DIAGNOSES: 1. Hypercholesterolemia. 2. Anemia. 3. Gastroesophageal reflux disease. 4. Obesity. 5. Seasonal allergies. DISCHARGE DIAGNOSIS: Valgus osteoarthritis of the right knee status post right total knee arthroplasty. HISTORY: The patient is a 63-year-old female who had progressively worsening right knee pain and stiffness. She failed to improve with conservative measures. She continued to have symptoms with weightbearing activities and activities of daily living. The patient consented for an elective right total knee arthroplasty with Dr. Ram for her continued symptoms. OPERATION PERFORMED: Right total knee arthroplasty. HOSPITAL COURSE: The patient underwent a right total knee arthroplasty under spinal anesthesia with femoral nerve block. Surgery was uneventful, but she did have a few febrile episodes while inpatient. There were no overt signs of sepsis. No diarrhea. Blood cultures and urine cultures were negative. The patient was discharged on oral pain medications and will resume her preoperative medications and diet. She will followup with cardiology for right bundle branch block without systolic dysfunction or hypokinesis, which was noted during her preoperative physical. The patient will use her thromboembolic deterrent stockings and take her anticoagulant as directed to prevent deep venous thrombosis. She will followup in our office in approximately 12-14 days for a wound check. The patient is encouraged to contact our office sooner if there is any increase in pain, drainage, redness, numbness or tingling in the extremity, fever greater than 101 degrees, or any other concerns. Please see medical record for additional details.
== END 2019-03-13 13:42 | disposition home health service (06) | DRG 470 ==
LOC: M OR 07:47 → M MS5PR 14:25
PROVIDERS: ADMIT Orthopaedic Surgery; ATTEND Orthopaedic Surgery
PROC: 0SRC0J9 Replacement of Right Knee Joint with Synthetic Substitute, Cemented, Open Approach (ICD-10-PCS; principal; 2019-03-10 10:15)
DX: M17.11 Unilateral primary osteoarthritis, right knee (principal); E66.9 Obesity, unspecified; Z79.899 Other long term (current) drug therapy; Z88.8 Allergy status to other drugs, medicaments and biological substances; E78.00 Pure hypercholesterolemia, unspecified; K21.9 Gastro-esophageal reflux disease without esophagitis; I45.10 Unspecified right bundle-branch block; R50.82 Postprocedural fever

== ENCOUNTER → 2019-03-20 | Outpatient (REF) | payer MEDICARE ==
[~2019-03-20] MED LIST changes: -CelecoXIB (CeleBREX) 100 MG CAP PO ONE; -LIDOCAINE 1% MDV 20ML VIAL SQ PRN; -LR 1,000 ML IV ONE; -PERCOCET 5MG/325MG TAB PO ONE; -PREGABALIN 75 MG CAP(LYRICA) PO ONE; +XARE10TA PO; -ceFAZolin SOD 1 GM in D5W MINI-BAG PLUS 50 ML IV ONE
== END ==
LOC: M LAB REF 12:48
PROVIDERS: ATTEND Internal Medicine
DX: R19.7 Diarrhea, unspecified (principal)

== ENCOUNTER 2019-05-05 11:46 | Outpatient (RCR) | payer MEDICARE | END 2019-05-08 | LOC: M PT 11:46 | PROVIDERS: ATTEND Orthopaedic Surgery | DX: Z47.1 Aftercare following joint replacement surgery (principal); Z96.651 Presence of right artificial knee joint ==

== ENCOUNTER 2019-06-02 10:41 | Outpatient (RCR) | payer MEDICARE | END 2019-06-07 | LOC: M PT 10:41 | PROVIDERS: ATTEND Orthopaedic Surgery | DX: Z47.1 Aftercare following joint replacement surgery (principal); Z96.651 Presence of right artificial knee joint ==

== ENCOUNTER → 2020-01-27 | Outpatient (REF) | payer MEDICARE | LOC: M LAB REF 17:10 | PROVIDERS: ATTEND Dermatology | DX: L57.0 Actinic keratosis (principal); L57.8 Other skin changes due to chronic exposure to nonionizing radiation ==

== ENCOUNTER → 2020-02-11 | Outpatient (CLI) | payer MEDICARE ==
--- NOTE | 2020-02-11 14:08 | REPMRS ---
Patient History The patient states she has not had a clinical breast exam in over a year. Family history of colorectal cancer in maternal uncle, colorectal cancer in maternal cousin, pancreatic cancer at age 50 or over in father. 3D TOMOSYNTHESIS WAS PERFORMED. The Amber Phillips lifetime risk for breast cancer is 5.9%. VOLPARA BON B. Digital Woman Screen Mammo: February 11, 2020 - Exam #: [id number] Bilateral CC and MLO view(s) were taken. Technologist: Keily Sutherland, Technologist Prior study comparison: July 28, 2018, bilateral digital woman screen mammo performed at [facility]. February 14, 2017, digital woman screen mammo performed at [facility]. FINDINGS: There are scattered fibroglandular densities. There has been no change in the appearance of the mammogram from the prior studies. There is a mild amount of residual fibroglandular tissue which is fairly symmetric. There is no interval development of dominant mass, architectural distortion, or clustered microcalcification suggestive of malignancy. Assessment: BI-RADS/ACR category 1 mammogram. Negative Mammogram. Recommendation Routine screening mammogram in 1 year (for women over age 40). This mammogram was interpreted with the aid of an FDA-approved computer-aided dectection system. Electronically Signed By: Arvind Scott MD 02/11/20 [id number]
== END ==
LOC: M WHC 12:55
PROVIDERS: ATTEND Nurse Practitioner Women's Health
DX: Z12.31 Encounter for screening mammogram for malignant neoplasm of breast (principal); M81.0 Age-related osteoporosis without current pathological fracture

== ENCOUNTER → 2020-09-10 | Outpatient (REF) | payer MEDICARE | LOC: M LAB REF 10:41 | PROVIDERS: ATTEND Physician Assistant | DX: Z11.59 Encounter for screening for other viral diseases (principal) ==

== ENCOUNTER → 2020-11-02 | Outpatient (CLI) | payer MEDICARE ==
--- NOTE | 2020-11-07 02:23 | ECWPNPC ---
PATIENT NAME: FILI ONEIL : 1955 GENDER: FEMALE VISIT DATE: 11/02/2020 DISCHARGE DATE: 11/02/20 1427 VISIT LOCKED DATE TIME: PHYSICIAN: MARLENY ROSALES RESOURCE: MARLENY ROSALES REASON FOR APPOINTMENT 1. KNEE PAIN HISTORY OF PRESENT ILLNESS DEPRESSION SCREENING: PHQ-2 (2015 EDITION) LITTLE INTEREST OR PLEASURE IN DOING THINGS?NOT AT ALL FEELING DOWN, DEPRESSED, OR HOPELESS?NOT AT ALL TOTAL SCORE0 GENERAL: PLEASANT 65 Y/O FEMALE REFERRED BY PRIMARY CARE,DR MARION MAGAÑA FOR CHRONIC LEFT KNEE PAIN.HISTORY OF RIGHT TOTAL KNEE REPLACEMENT 18 MONTHS AGO AND SHE CONTINUES WITH RIGHT KNEE PAIN.SHE WOULD LIKE TO AVOID LEFT TOTAL KNEE AND IS INTERESTED IN PURSUING RADIOFREQUENCY OF LEFT KNEE IF POSSIBLE.- - -. FALL RISK SCREENING: SCREENING :NO FALLS REPORTED IN THE LAST YEAR PAIN SCREENING: PATIENT HAS A COMPLAINT OF ACUTE OR CHRONIC PAIN :YES LOCATION OF PAIN:KNEES BOTH KNEE, MOSTLY THE LEFT KNEE INTENSITY OF PAIN (SCALE OF 1 TO 10):5 WHAT DOES YOUR PAIN FEEL LIKE:SHARP, STABBING DURATION:INTERMITTENT PAIN IS INCREASED BY:ACTIVITIES PAIN IS DECREASED BY:USE OF PAIN MEDICATIONS NURSING NOTE: - - -. PAIN CENTER INTAKE QUESTIONS: DO YOU HAVE A HISTORY OF MRSA? :NO DO YOU TAKE A BLOOD THINNERS? :NO DO YOU HAVE ANY BLEEDING DISORDERS? :NO ANY NEW NUMBNESS OR WEAKNESS IN YOUR LEGS OR ARMS? :NO ANY PACEMAKER,DEFIBRILLATOR, OR DORSAL COLUMN STIMULATOR? :NO DO YOU HAVE ANY RASHES OR OPEN SORES? :NO ARE YOU ALLERGIC TO IV DYE? :NO ARE YOU DIABETIC? :NO ANY NEW PROBLEMS WITH YOUR MEDICATIONS? :NO HAVE YOU RECEIVED A VACCINE IN THE PAST 30 DAYS? :YES IF SO WHAT VACCINE AND WHEN? COVID 10/15/20 DO YOU PLAN TO RECEIVE A VACCINE IN THE NEXT 21 DAYS? :YES IF SO WHAT VACCINE AND WHEN? COVID 2ND 11/14/20 DO YOU NEED ANY PRESCRIPTION? :NO DO YOU TAKE ANY IMMUNOSUPPRESSIVE MEDICATIONS? :NO CURRENT MEDICATIONS TAKING SHINGRIX 50 MCG/0.5 ML SUSPENSION DIRECTED INTRAMUSCULAR _ TAKING SHINGRIX 50 MCG/0.5 ML SUSPENSION DIRECTED INTRAMUSCULAR _ TAKING MONTELUKAST SODIUM 10 MG TABLET 1 TABLET ORALLY ONCE A DAY TAKING ATORVASTATIN CALCIUM 80 MG TABLET 1 TABLET ORALLY ONCE A DAY TAKING CO Q-10 200 MG CAPSULE 1 CAPSULE WITH A MEAL ORALLY ONCE A DAY TAKING TRAMADOL HCL 50 MG TABLET 1 TABLET NEEDED ORALLY TAKING CARISOPRODOL 350 MG TABLET 1 TABLET NEEDED ORALLY FOUR TIMES A DAY TAKING OMEPRAZOLE 20MG 20MG CAPSULE 1 CAP(S) P.O. ONCE A DAY TAKING TYLENOL EXTRA STRENGTH 500 MG TABLET 1 TABLET NEEDED ORALLY EVERY 6 HRS TAKING PROAIR HFA 108 (90 BASE) MCG/ACT AEROSOL SOLUTION 2 PUFF NEEDED INHALATION TAKING MULTIVITAMIN - TABLET 1 TABLET ORALLY ONCE A DAY TAKING BIOTIN 1000 MCG TABLET 2 TABLET ORALLY ONCE A DAY TAKING CITRACAL +D3 250-107-500 MG-MG-UNIT TABLET CHEWABLE DIRECTED ORALLY TAKING SINGULAIR 10 MG TABLET 1 TABLET ORALLY ONCE A DAY TAKING HAIR SKIN NAILS - CAPSULE DIRECTED ORALLY TAKING CA CIT-VIT D-VIT K-MINERALS 200 MG TABLET DIRECTED ORALLY TAKING PROBIOTIC - CAPSULE DIRECTED ORALLY TAKING ARTIFICIAL TEAR TAKING LIPITOR 80 MG TABLET 1 TABLET ORALLY ONCE A DAY TAKING XYZAL ALLERGY 24HR 5 MG TABLET ORALLY TAKING VITAMIN B12 5000 MCG 1 TABLET ORALLY NOT-TAKING LEVOCETIRIZINE DIHYDROCHLORIDE 5 MG TABLET 1 TABLET IN THE EVENING ORALLY ONCE A DAY NOT-TAKING MAGNESIUM 400 MG CAPSULE DIRECTED ORALLY NOT-TAKING SINGULAIR 10 MG TABLET 1 TABLET ORALLY ONCE A DAY NOT-TAKING SOMA 350 MG TABLET 1 TABLET NEEDED ORALLY NOT-TAKING BIOTIN 13192 MCG MEDICATION LIST REVIEWED AND RECONCILED WITH THE PATIENT PAST MEDICAL HISTORY POSTMENOPAUSE GERD ENVIRONMENTAL ALLERGIES MORBID OBESITY, LOST 110# THRU BYPASS, HAVE GAINED 30# ARTHRITIS SCIATICA HYPERLIPIDEMIA COLON POLYPS FIRST COLONOSCOPY (AGE 49) 2004 ANEMIA C DIFF ALLERGIES MACROBID: NAUSEA/VOMITING - SIDE EFFECTS ENVIRONMENTAL ALLERGIES SURGICAL HISTORY RT CARPAL TUNNEL 04/05/09 RT LIPOMA RT ARM 04/05/09 RELEASE OF RT AND LT TENDON WRIST 04/05/09 GASTRIC BYPASS 2010 TRIGGER FINGER RELEASE LEFT THUMB 11/2011 COLONOSCOPY (DAVID MARTINEZ REINDL) 2004, 2007, 12/2013,2018 RIGHT TOTAL KNEE REPLACEMNET 03/2019 FAMILY HISTORY FATHER: 78 YRS, LUNG AND LIVER CANCER MOTHER: 78 YRS, PNEUMONIA, DEMENTIA SIBLINGS: ALIVE 71 YRS, BROTHER-DX WITH LEUKEMIA. ONE BROTHER AND ONE SISTER, ALIVE AT 66 & 62RESPECTIVELY, BCC, DOING WELL. REMAINING SIBLINGS ALIVE AND WELL SON(S): ALIVE 39,36 YRS, OLDEST-ANXIETY. YOUNGER-GOUT AND HYPERLIPIDEMIA 2 BROTHER(S) , 2 SISTER(S) - HEALTHY. 2 SON(S) - HEALTHY. DENIES BREAST OR OVARIAN CANCERS. MATERNAL COUSIN-COLON CANCER, DX MID 50'S, NOW 67.MATERNAL AUNT HAD MELANOMA BROTHER BASAL CELL CARCINOMADENIES FAMILY HX OF PANCREATIC CANCER. SOCIAL HISTORY GENERAL: TOBACCO USE ARE YOU A:NONSMOKER LATEX QUESTIONNAIRE LATEX ALLERGY : HAVE YOU EVER DEVELOPED ANY TYPE OF REACTION AFTER HANDLING LATEX PRODUCTS SUCH RUBBER GLOVES, CONDOMS, DIAPHRAGMS, BALLOONS, SOCKS, OR UNDERWEAR?NO LATEX ALLERGY : HAVE YOU EVER DEVELOPED ANY TYPE OF REACTION DURING OR AFTER DENTAL APPOINTMENT, VAGINAL/RECTAL EXAMINATION, SURGICAL PROCEDURE, OR ANY OTHER EXPOSURE?NO LATEX RISK : HAVE YOU EVER HAD ANY DIFFICULTY BREATHING OR HIVES AFTER EATING OR HANDLING ANY FRUITS, OR VEGETABLES; SUCH KIWI, BANANAS, STONE FRUITS, OR CHESTNUTSNO LATEX RISK : DO YOU HAVE A PREVIOUS PERSONAL HISTORY OF MORE THAN NINE SURGERIES, SPINA BIFIDA, OR REPEATED CATHERIZATIONS? NO LATEX RISK : ARE YOU FREQUENTLY EXPOSED TO LATEX PRODUCTS IN YOUR OCCUPATION?NO DATE ASKED : 11/02/2020 ALCOHOL USE: YES. BMI CARE GOAL FOLLOW-UP ABOVE NORMAL BMI FOLLOW-UPGIVING ENCOURAGEMENT TO EXERCISE ALCOHOL SCREENING DID YOU HAVE A DRINK CONTAINING ALCOHOL IN THE PAST YEAR?YES HOW OFTEN DID YOU HAVE SIX OR MORE DRINKS ON ONE OCCASION IN THE PAST YEAR?NEVER (0 POINTS) HOW MANY DRINKS DID YOU HAVE ON A TYPICAL DAY WHEN YOU WERE DRINKING IN THE PAST YEAR?1 OR 2 (0 POINTS) HOW OFTEN DID YOU HAVE A DRINK CONTAINING ALCOHOL IN THE PAST YEAR?TWO TO FOUR TIMES A MONTH (2 POINTS) POINTS2 INTERPRETATIONNEGATIVE RECREATIONAL DRUG USE DENIES. CAFFEINE NONE. SEXUAL HX HAD SEX IN THE LAST 12 MONTHS (VAGINAL, ORAL, OR ANAL)?NO LMP:POST MENOPAUSE HAVE YOU EVER HAD AN STD?NO PRESYBETERIAN [id number] FAITH LANGUAGE LANGUAGES SPOKEN:LEBANESE LEARNING BARRIERS / SPECIAL NEEDS CHANGE FROM LAST VISIT?NO BARRIERS TO LEARNING?NO HEARING IMPAIRED?NO VISION IMPAIRED?YES :CORRECTIVE LENSES COGNITIVELY IMPAIRED?NO READINESS TO LEARN?YES LEARNING PREFERENCES?NO LEARNING CAPABILITIES PRESENT?YES EMOTIONAL BARRIERS?NO SPECIAL DEVICES?NO CLOTH EXAMINER HAND NEEDED?NO DOMESTIC VIOLENCE DENIES, 05/10/14 HITS=N/A, NO PARTNER. 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 DIET: REGULAR, NO HX EATING DISORDER. EXERCISE: 2 X WK, WALKS. MARITAL STATUS: , PASSED IN 1990 ([facility]) AT 34. OTHERS AT HOME: LIVES ALONE. HOSPITALIZATION/MAJOR DIAGNOSTIC PROCEDURE UTI 1999 SEE ABOVE REVIEW OF SYSTEMS CONSTITUTIONAL: ANY RECENT FEVER NO . CHILLS NO . WEIGHT CHANGE OF UNKNOWN REASONS NO . GASTROENTEROLOGY: NEW UNEXPLAINABLE CHANGES IN BOWEL CONTROL NO . CONSTIPATION NO . GENITOURINARY: ANY NEW CHANGE IN BLADDER CONTROL? NO . NEUROLOGY: NEW ONSET DIZZINESS OR NEUROLOGICAL CHANGES NOT MENTIONED NO . NEW NUMBNESS OR PAIN PATTERNS NOT MENTIONED AND PERTINENT TO TODAY'S VISIT NO . CARDIOLOGY: NEW CHEST PRESSURE NO . PATIENT DENIES NO . RESPIRATORY: UNEXPLAINABLE COUGH NO . NEW SHORTNESS OF BREATH NO . VITAL SIGNS WT 220 LBS, HT 63.25 IN, BMI 38.66 INDEX, BP 134/79 MM HG, HR 94 /MIN, RR 18 /MIN, TEMP 97.3 F, OXYGEN SAT % 98, SAFE IN ENV? (Y/N) YEST.ROCK SHARIF. EXAMINATION GENERAL EXAMINATION: GENERALNO ACUTE DISTRESS, WELL NOURISHED AND HYDRATED. PSYCHAPPROPRIATE MOOD AND AFFECT . FACE:UNREMARKABLE. NECK:NO LYMPHADENOPATHY, SUPPLE. LUNGS:CLEAR TO AUSCULTATION BILATERALLY, NO WHEEZES, RHONCHI, RALES. HEART:NO MURMURS, REGULAR RATE AND RHYTHM. EXTREMITIES: TENDERNESS NOTED OVER LEFT KNEE.NO REDDNESS OR SWELLING. ASSESSMENTS PAIN IN LEFT KNEE - M25.562 (PRIMARY) OTHER CHRONIC PAIN - G89.29 TREATMENT PAIN IN LEFT KNEE [facility] MRI KNEE WITHOUT [id number], NICOLE 11/02/2020 02:32:22 PM > MRI LEFT KNEE WITHOUT CONTRAST ILYA GARCIA 11/02/2020 02:32:31 PM > MRI LEFT KNEE WITHOUT CONTRAST NOTES: F/U WITH DR DEL VALLE TO REVIEW MRI LEFT KNEE AND DISCUSS POSSIBILITY OF DIAGNOSTIC BLOCK OF LEFT KNEE. PROCEDURE CODES FA211 ESTABILISHED PATIENT [facility] FAC[facility] CHARGE DISPOSITION & COMMUNICATION FOLLOW UP DR DEL VALLE F/U- (REASON: LEFT KNEE PAIN/REVIEW MRI LEFT KNEE/DISCUSS OSSIBILITY OF RF LEFT KNEE) ELECTRONICALLY SIGNED BY LUCINDA LONDON ON 11/06/2020 AT 07:10 PM EST DISCLAIMER : THIS IS A VISIT SUMMARY EXTRACTED FROM THE [employer] CHART. IT IS NOT A COPY OF THE [employer] PROGRESS NOTE. SUZE
== END ==
LOC: M PAIN 13:00
PROVIDERS: ATTEND Nurse Practitioner Family
DX: M25.562 Pain in left knee (principal); G89.29 Other chronic pain; K21.9 Gastro-esophageal reflux disease without esophagitis; Z98.84 Bariatric surgery status; Z96.651 Presence of right artificial knee joint; Z88.1 Allergy status to other antibiotic agents; Z79.899 Other long term (current) drug therapy

== ENCOUNTER → 2020-11-14 | Outpatient (CLI) | payer MEDICARE ==
--- NOTE | 2020-11-15 09:25 | REP ---
INDICATION: PAIN IN LEFT KNEE. COMPARISON: None. TECHNIQUE: Multiple sequences obtained in the axial, coronal and sagittal planes. FINDINGS: Menisci: There is extensive complex tear of the anterior and posterior horns of the lateral meniscus, with maceration. There is a complex tear of the body and posterior horn of the medial meniscus. Cruciate ligaments: Intact. Collateral ligaments: Intact. Extensor mechanism/patellar retinacula: Intact. Cartilage: There is mild to moderate diffuse chondromalacia of the patella and the adjacent femoral notch. There is diffuse severe chondromalacia of the lateral femoral condyle and tibial plateau. There is mild to moderate diffuse chondromalacia of the medial femoral condyle and tibial plateau. Bone marrow: There is mild subchondral marrow edema in the tibial plateaus. There is diffuse moderate spurring of the femoral condyles and tibial plateaus. Joint fluid: There is a moderate to large complex joint effusion with synovial thickening in the suprapatellar bursa, as well as a suprapatellar plica. Popliteal region: A Camp's cyst is present, measuring approximately 5.7 x 1.4 x 1.3 cm. IMPRESSION: Negative MRI of the knee. <Electronically signed by Arvind Scott > 11/15/20 0922
== END ==
LOC: M RAD 17:38
PROVIDERS: ATTEND Nurse Practitioner Family
DX: M25.562 Pain in left knee (principal); M79.605 Pain in left leg

== ENCOUNTER → 2020-11-17 | Outpatient (CLI) | payer MEDICARE ==
--- NOTE | 2020-11-22 00:04 | ECWPNPC ---
PATIENT NAME: IFLI ONEIL : 1955 GENDER: FEMALE VISIT DATE: 11/17/2020 DISCHARGE DATE: 11/17/20 1207 VISIT LOCKED DATE TIME: PHYSICIAN: BRANDAN DEL VALLE MD RESOURCE: BRANDAN DEL VALLE MD REASON FOR APPOINTMENT 1. LEFT KNEE PAIN/REVIEW MRI LEFT KNEE/DISCUSS OSSIBILITY OF RF LEFT KNEE HISTORY OF PRESENT ILLNESS GENERAL: 65-YEAR-OLD FEMALE PATIENT WITH A HISTORY OF CHRONIC LEFT KNEE PAIN. THE PATIENT DESCRIBES THE PAIN SHARP, ACHING AT TIMES AND SOMETIMES STABBING WITH A PAIN SCORE RANGING FROM 5-9/10 OVER THE LEFT KNEE. THIS PAIN GETS WORSE WITH WALKING AND PROLONGED STANDING AND GETS BETTER WITH REST. SHE HAD A RIGHT TOTAL KNEE REPLACEMENT. SHE WAS INFORMED THAT SHE CAN HAVE A TOTAL KNEE REPLACEMENT ON THE LEFT SIDE, BUT SHE IS NOT COMPLETELY SATISFIED WITH THE RIGHT SIDE. SHE HAS SOME IMPROVEMENT BUT SHE STILL HAVE SOME RESIDUAL PAIN. SHE KNOWS THAT SHE HAS TO STILL GIVE IT SOME TIME, BUT SHE IS LOOKING FOR OTHER ALTERNATIVES WITH THE LEFT KNEE BEFORE MOVING FORWARD WITH THE KNEE REPLACEMENT ON THAT SIDE. FALL RISK SCREENING: SCREENING : NO FALLS REPORTED IN THE LAST YEAR. PAIN SCREENING: PATIENT HAS A COMPLAINT OF ACUTE OR CHRONIC PAIN :YES LOCATION OF PAIN:KNEES LEFT KNEE INTENSITY OF PAIN (SCALE OF 1 TO 10):6 WHAT DOES YOUR PAIN FEEL LIKE:SHARP DURATION:INTERMITTENT PAIN IS INCREASED BY:ACTIVITIES PROLONGED WALKING, PROLONGED SITTING PAIN IS DECREASED BY:OTHERS REST NURSING NOTE: -. PAIN CENTER INTAKE QUESTIONS: DO YOU HAVE A HISTORY OF MRSA? :NO DO YOU TAKE A BLOOD THINNERS? :NO DO YOU HAVE ANY BLEEDING DISORDERS? :NO ANY NEW NUMBNESS OR WEAKNESS IN YOUR LEGS OR ARMS? :NO ANY PACEMAKER,DEFIBRILLATOR, OR DORSAL COLUMN STIMULATOR? :NO DO YOU HAVE ANY RASHES OR OPEN SORES? :NO ARE YOU ALLERGIC TO IV DYE? :NO ARE YOU DIABETIC? :NO ANY NEW PROBLEMS WITH YOUR MEDICATIONS? :NO HAVE YOU RECEIVED A VACCINE IN THE PAST 30 DAYS? :YES IF SO WHAT VACCINE AND WHEN? 2ND COVID VACCINE 11/14/20 DO YOU PLAN TO RECEIVE A VACCINE IN THE NEXT 21 DAYS? :NO DO YOU NEED ANY PRESCRIPTION? :NO DO YOU TAKE ANY IMMUNOSUPPRESSIVE MEDICATIONS? :NO DO YOU HAVE ANY KIDNEY OR LIVER DISEASE? :NO IS THERE A CHANCE YOU COULD BE ? :NO ARE YOU BREAST FEEDING? :NO CURRENT MEDICATIONS TAKING SHINGRIX 50 MCG/0.5 ML SUSPENSION DIRECTED INTRAMUSCULAR _ TAKING MONTELUKAST SODIUM 10 MG TABLET 1 TABLET ORALLY ONCE A DAY TAKING ATORVASTATIN CALCIUM 80 MG TABLET 1 TABLET ORALLY ONCE A DAY TAKING CO Q-10 200 MG CAPSULE 1 CAPSULE WITH A MEAL ORALLY ONCE A DAY TAKING TRAMADOL HCL 50 MG TABLET 1 TABLET NEEDED ORALLY TAKING CARISOPRODOL 350 MG TABLET 1 TABLET NEEDED ORALLY FOUR TIMES A DAY TAKING OMEPRAZOLE 20MG 20MG CAPSULE 1 CAP(S) P.O. ONCE A DAY TAKING TYLENOL EXTRA STRENGTH 500 MG TABLET 1 TABLET NEEDED ORALLY EVERY 6 HRS TAKING PROAIR HFA 108 (90 BASE) MCG/ACT AEROSOL SOLUTION 2 PUFF NEEDED INHALATION TAKING MULTIVITAMIN - TABLET 1 TABLET ORALLY ONCE A DAY TAKING BIOTIN 1000 MCG TABLET 2 TABLET ORALLY ONCE A DAY TAKING CITRACAL +D3 250-107-500 MG-MG-UNIT TABLET CHEWABLE DIRECTED ORALLY TAKING SINGULAIR 10 MG TABLET 1 TABLET ORALLY ONCE A DAY TAKING HAIR SKIN NAILS - CAPSULE DIRECTED ORALLY TAKING CA CIT-VIT D-VIT K-MINERALS 200 MG TABLET DIRECTED ORALLY TAKING PROBIOTIC - CAPSULE DIRECTED ORALLY TAKING ARTIFICIAL TEAR TAKING LIPITOR 80 MG TABLET 1 TABLET ORALLY ONCE A DAY TAKING XYZAL ALLERGY 24HR 5 MG TABLET ORALLY TAKING VITAMIN B12 5000 MCG 1 TABLET ORALLY NOT-TAKING SHINGRIX 50 MCG/0.5 ML SUSPENSION DIRECTED INTRAMUSCULAR _, NOTES: DUPLICATE NOT-TAKING LEVOCETIRIZINE DIHYDROCHLORIDE 5 MG TABLET 1 TABLET IN THE EVENING ORALLY ONCE A DAY NOT-TAKING MAGNESIUM 400 MG CAPSULE DIRECTED ORALLY NOT-TAKING SINGULAIR 10 MG TABLET 1 TABLET ORALLY ONCE A DAY NOT-TAKING SOMA 350 MG TABLET 1 TABLET NEEDED ORALLY NOT-TAKING BIOTIN 00466 MCG MEDICATION LIST REVIEWED AND RECONCILED WITH THE PATIENT PAST MEDICAL HISTORY POSTMENOPAUSE GERD ENVIRONMENTAL ALLERGIES MORBID OBESITY, LOST 110# THRU BYPASS, HAVE GAINED 30# ARTHRITIS SCIATICA HYPERLIPIDEMIA COLON POLYPS FIRST COLONOSCOPY (AGE 49) 2004 ANEMIA C DIFF ALLERGIES MACROBID: NAUSEA/VOMITING - SIDE EFFECTS ENVIRONMENTAL ALLERGIES SURGICAL HISTORY RT CARPAL TUNNEL 04/05/09 RT LIPOMA RT ARM 04/05/09 RELEASE OF RT AND LT TENDON WRIST 04/05/09 GASTRIC BYPASS 2010 TRIGGER FINGER RELEASE LEFT THUMB 11/2011 COLONOSCOPY (DAVID MARTINEZ REINDL) 2004, 2007, 12/2013,2019 RIGHT TOTAL KNEE REPLACEMNET 03/2019 SOCIAL HISTORY GENERAL: TOBACCO USE ARE YOU A:NONSMOKER LATEX QUESTIONNAIRE LATEX ALLERGY : HAVE YOU EVER DEVELOPED ANY TYPE OF REACTION AFTER HANDLING LATEX PRODUCTS SUCH RUBBER GLOVES, CONDOMS, DIAPHRAGMS, BALLOONS, SOCKS, OR UNDERWEAR?NO LATEX ALLERGY : HAVE YOU EVER DEVELOPED ANY TYPE OF REACTION DURING OR AFTER DENTAL APPOINTMENT, VAGINAL/RECTAL EXAMINATION, SURGICAL PROCEDURE, OR ANY OTHER EXPOSURE?NO LATEX RISK : HAVE YOU EVER HAD ANY DIFFICULTY BREATHING OR HIVES AFTER EATING OR HANDLING ANY FRUITS, OR VEGETABLES; SUCH KIWI, BANANAS, STONE FRUITS, OR CHESTNUTSNO LATEX RISK : DO YOU HAVE A PREVIOUS PERSONAL HISTORY OF MORE THAN NINE SURGERIES, SPINA BIFIDA, OR REPEATED CATHERIZATIONS? NO LATEX RISK : ARE YOU FREQUENTLY EXPOSED TO LATEX PRODUCTS IN YOUR OCCUPATION?NO DATE ASKED : 11/02/2020 ALCOHOL USE: YES. BMI CARE GOAL FOLLOW-UP ABOVE NORMAL BMI FOLLOW-UPGIVING ENCOURAGEMENT TO EXERCISE ALCOHOL SCREENING DID YOU HAVE A DRINK CONTAINING ALCOHOL IN THE PAST YEAR?YES HOW OFTEN DID YOU HAVE SIX OR MORE DRINKS ON ONE OCCASION IN THE PAST YEAR?NEVER (0 POINTS) HOW MANY DRINKS DID YOU HAVE ON A TYPICAL DAY WHEN YOU WERE DRINKING IN THE PAST YEAR?1 OR 2 (0 POINTS) HOW OFTEN DID YOU HAVE A DRINK CONTAINING ALCOHOL IN THE PAST YEAR?TWO TO FOUR TIMES A MONTH (2 POINTS) POINTS2 INTERPRETATIONNEGATIVE RECREATIONAL DRUG USE DENIES. CAFFEINE NONE. SEXUAL HX HAD SEX IN THE LAST 12 MONTHS (VAGINAL, ORAL, OR ANAL)?NO LMP:POST MENOPAUSE HAVE YOU EVER HAD AN STD?NO CONFUCIANIST [id number] CONGREGATION LANGUAGE LANGUAGES SPOKEN:MOLDOVAN LEARNING BARRIERS / SPECIAL NEEDS CHANGE FROM LAST VISIT?NO BARRIERS TO LEARNING?NO HEARING IMPAIRED?NO VISION IMPAIRED?YES :CORRECTIVE LENSES COGNITIVELY IMPAIRED?NO READINESS TO LEARN?YES LEARNING PREFERENCES?NO LEARNING CAPABILITIES PRESENT?YES EMOTIONAL BARRIERS?NO SPECIAL DEVICES?YES : HAS CANE AND WALKER, NOT USING CURRENTLY RAKER BUFFING WHEEL NEEDED?NO DOMESTIC VIOLENCE DENIES, 05/10/14 HITS=N/A, NO PARTNER. 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 DIET: REGULAR, NO HX EATING DISORDER. EXERCISE: 2 X WK, WALKS. MARITAL STATUS: , PASSED IN 1990 ([facility]) AT 34. OTHERS AT HOME: LIVES ALONE. REVIEW OF SYSTEMS CONSTITUTIONAL: ANY RECENT FEVER NO . CHILLS NO . WEIGHT CHANGE OF UNKNOWN REASONS NO . GASTROENTEROLOGY: NEW UNEXPLAINABLE CHANGES IN BOWEL CONTROL NO . CONSTIPATION NO . GENITOURINARY: ANY NEW CHANGE IN BLADDER CONTROL? NO . NEUROLOGY: NEW ONSET DIZZINESS OR NEUROLOGICAL CHANGES NOT MENTIONED NO . NEW NUMBNESS OR PAIN PATTERNS NOT MENTIONED AND PERTINENT TO TODAY'S VISIT NO . CARDIOLOGY: NEW CHEST PRESSURE NO . PATIENT DENIES NO . RESPIRATORY: UNEXPLAINABLE COUGH NO . NEW SHORTNESS OF BREATH NO . VITAL SIGNS WT 223.2 LBS, HT 63.25 IN, BMI 39.22 INDEX, BP 147/70 MM HG, HR 96 /MIN, RR 18 /MIN, TEMP 96.9 F, OXYGEN SAT % 98%, SAFE IN ENV? (Y/N) YES, NA INITIALS AW 1037, REVIEWED BY: APA. ARIANA RN. EXAMINATION GENERAL EXAMINATION: THE PATIENT IS ALERT, ORIENTED TIMES THREE AND COOPERATIVE. LUNGS ARE CLEAR TO AUSCULTATION. HEART SHOWS REGULAR RHYTHM, NO MURMURS AND NO GALLOPS. THE PATIENT IS LIMPING FROM THE LEFT LEG. THE LEFT LEG IS WEAKER THAN THE RIGHT LEG ON EXTENSION AND FLEXION. THERE IS SOME CREPITATIONS IN THE MOVEMENTS OF THE LEFT KNEE. THE PATIENT HAS TENDERNESS OVER THE LATERAL ASPECT OF THE LEFT KNEE AT THE LEFT LOWER BORDER OF THE PATELLA. LEFT KNEE MRI DATED 11/14/2020 SHOWS THERE ARE SOME TEARS OF THE MENISCUS, THERE IS SOME CHONDROMALACIA OVER THE PATELLA, THERE IS SEVERE CHONDROMALACIA OVER THE FEMORAL CONDYLE. THERE ARE NO COLOR CHANGES OR ISCHEMIC CHANGES. THE SCAR ON THE RIGHT SIDE IS 7 INCHES LONG. THE RIGHT KNEE IS HURTING OVER THE LATERAL ASPECT JUST BELOW THE PATELLA. 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 ONEIL. WE AGREE ON DOING SOME DIAGNOSTIC TESTS OVER THE LEFT KNEE IN THE OPERATING ROOM WITH PROPOFOL. I EXPRESSED MY CONCERNS WITH HER OF WHERE HER PAIN IS LOCATED. I WILL CALL DR. KAUR TO DISCUSS THIS WITH HIM. THE PATIENT REPORTS UNDERSTANDING AND AGREES WITH THE PLAN. I, KAYLA BLAKE, DOCUMENTED THE ABOVE INFORMATION ACTING A SCRIBE FOR DR. DEL VALLE. I HAVE REVIEWED THE ABOVE DOCUMENT, WRITTEN BY KAYLA BLAKE, MARINE ELECTRONICS TECHNICIAN, AND I VERIFY THAT IT IS ACCURATE. PROCEDURE CODES FA211 ESTABILISHED PATIENT [facility] CHARGE [id number] OFFICE/OUTPATIENT VISIT EST DISPOSITION & COMMUNICATION FOLLOW UP REQUEST AUTH FOR LEFT KNEE DIAGNOSTIC TEST, IN [place] (REASON: PATIENT WILL NEED A PRESEDATE APPOINTMENT, DON'T BOOK YET) ELECTRONICALLY SIGNED BY BRANDAN DEL VALLE MD, ON 11/21/2020 AT 03:53 PM EDT DISCLAIMER : THIS IS A VISIT SUMMARY EXTRACTED FROM THE [employer] CHART. IT IS NOT A COPY OF THE [employer] PROGRESS NOTE. SUZE
== END ==
LOC: M PAIN 10:30
PROVIDERS: ATTEND Anesthesiology
DX: M94.262 Chondromalacia, left knee (principal); M25.562 Pain in left knee; G89.29 Other chronic pain; K21.9 Gastro-esophageal reflux disease without esophagitis; Z98.84 Bariatric surgery status; Z96.651 Presence of right artificial knee joint; Z88.1 Allergy status to other antibiotic agents; Z79.899 Other long term (current) drug therapy

== ENCOUNTER → 2020-12-08 | Outpatient (CLI) | payer MEDICARE ==
--- NOTE | 2020-12-13 08:10 | ECWPNPC ---
PATIENT NAME: FILI ONEIL : 1955 GENDER: FEMALE VISIT DATE: 12/08/2020 DISCHARGE DATE: 12/08/20 1502 VISIT LOCKED DATE TIME: PHYSICIAN: BRANDAN DEL VALLE MD RESOURCE: BRANDAN DEL VALLE MD REASON FOR APPOINTMENT 1. PRESEDATE LEFT KNEE DIAGNOSTIC TEST HISTORY OF PRESENT ILLNESS GENERAL: 65-YEAR-OLD FEMALE PATIENT WITH A HISTORY OF CHRONIC LEFT KNEE PAIN. THE PATIENT DESCRIBES THE PAIN ACHING AND SHARP WITH A PAIN SCORE RANGING FROM 6-10/10 OVER THE LEFT KNEE. THE PAIN GETS WORSE WITH WALKING AND PROLONGED STANDING AND GETS BETTER WITH REST. THE PATIENT HAS A RIGHT KNEE REPLACEMENT. WE HAVE DISCUSSED DOING A DIAGNOSTIC KNEE BLOCK OF THE GENICULAR NERVE. WE AGREE ON DOING IT WITH PROPOFOL DUE TO THE DISCOMFORT ASSOCIATED WITH THE PROCEDURE. FALL RISK SCREENING: SCREENING : NO FALLS REPORTED IN THE LAST YEAR. PAIN SCREENING: PATIENT HAS A COMPLAINT OF ACUTE OR CHRONIC PAIN :YES LOCATION OF PAIN:KNEES LEFT INTENSITY OF PAIN (SCALE OF 1 TO 10):8 WHAT DOES YOUR PAIN FEEL LIKE:STABBING, THROBBING DURATION:INTERMITTENT PAIN IS INCREASED BY:ACTIVITIES, PROLONGED STANDING, OTHERS PROLONGED WALKING PAIN IS DECREASED BY:OTHERS RESTING NURSING NOTE: -. PAIN CENTER INTAKE QUESTIONS: DO YOU HAVE A HISTORY OF MRSA? :NO DO YOU TAKE A BLOOD THINNERS? :NO DO YOU HAVE ANY BLEEDING DISORDERS? :NO ANY NEW NUMBNESS OR WEAKNESS IN YOUR LEGS OR ARMS? :NO ANY PACEMAKER,DEFIBRILLATOR, OR DORSAL COLUMN STIMULATOR? :NO DO YOU HAVE ANY RASHES OR OPEN SORES? :NO ARE YOU ALLERGIC TO IV DYE? :NO ARE YOU DIABETIC? :NO ANY NEW PROBLEMS WITH YOUR MEDICATIONS? :NO HAVE YOU RECEIVED A VACCINE IN THE PAST 30 DAYS? :YES IF SO WHAT VACCINE AND WHEN? 2ND COVID VACCINE 11/14/20 DO YOU PLAN TO RECEIVE A VACCINE IN THE NEXT 21 DAYS? :NO DO YOU NEED ANY PRESCRIPTION? :NO DO YOU TAKE ANY IMMUNOSUPPRESSIVE MEDICATIONS? :NO DO YOU HAVE ANY KIDNEY OR LIVER DISEASE? :NO IS THERE A CHANCE YOU COULD BE ? :NO ARE YOU BREAST FEEDING? :NO CURRENT MEDICATIONS TAKING ATORVASTATIN CALCIUM 80 MG TABLET 1 TABLET ORALLY ONCE A DAY TAKING CO Q-10 200 MG CAPSULE 1 CAPSULE WITH A MEAL ORALLY ONCE A DAY TAKING TRAMADOL HCL 50 MG TABLET 1 TABLET NEEDED ORALLY TAKING CARISOPRODOL 350 MG TABLET 1 TABLET NEEDED ORALLY FOUR TIMES A DAY TAKING OMEPRAZOLE 20MG 20MG CAPSULE 1 CAP(S) P.O. ONCE A DAY TAKING TYLENOL EXTRA STRENGTH 500 MG TABLET 1 TABLET NEEDED ORALLY EVERY 6 HRS TAKING PROAIR HFA 108 (90 BASE) MCG/ACT AEROSOL SOLUTION 2 PUFF NEEDED INHALATION TAKING MULTIVITAMIN - TABLET W/ IRON; 2 TABLETS ORALLY ONCE A DAY TAKING BIOTIN 1000 MCG TABLET 2 TABLET ORALLY ONCE A DAY TAKING CITRACAL +D3 250-107-500 MG-MG-UNIT TABLET CHEWABLE 1 TAB ORALLY BID TAKING SINGULAIR 10 MG TABLET 1 TABLET ORALLY ONCE A DAY TAKING HAIR SKIN NAILS - CAPSULE DIRECTED ORALLY DAILY TAKING ARTIFICIAL TEAR 1 DROP NEEDED TAKING XYZAL ALLERGY 24HR 5 MG TABLET 1 TABLET IN THE EVENING ORALLY DAILY TAKING VITAMIN B12 5000 MCG 1 TABLET ORALLY DAILY TAKING ALIGN - CAPSULE DIRECTED ORALLY DAILY NOT-TAKING SHINGRIX 50 MCG/0.5 ML SUSPENSION DIRECTED INTRAMUSCULAR _ NOT-TAKING MONTELUKAST SODIUM 10 MG TABLET 1 TABLET ORALLY ONCE A DAY, NOTES: DUPLICATE NOT-TAKING CA CIT-VIT D-VIT K-MINERALS 200 MG TABLET DIRECTED ORALLY , NOTES: DUPLICATE NOT-TAKING PROBIOTIC - CAPSULE DIRECTED ORALLY NOT-TAKING LIPITOR 80 MG TABLET 1 TABLET ORALLY ONCE A DAY, NOTES: DUPLICATE NOT-TAKING SHINGRIX 50 MCG/0.5 ML SUSPENSION DIRECTED INTRAMUSCULAR _, NOTES: DUPLICATE NOT-TAKING LEVOCETIRIZINE DIHYDROCHLORIDE 5 MG TABLET 1 TABLET IN THE EVENING ORALLY ONCE A DAY NOT-TAKING MAGNESIUM 400 MG CAPSULE DIRECTED ORALLY NOT-TAKING SINGULAIR 10 MG TABLET 1 TABLET ORALLY ONCE A DAY NOT-TAKING SOMA 350 MG TABLET 1 TABLET NEEDED ORALLY NOT-TAKING BIOTIN 96217 MCG MEDICATION LIST REVIEWED AND RECONCILED WITH THE PATIENT PAST MEDICAL HISTORY POSTMENOPAUSE GERD ENVIRONMENTAL ALLERGIES MORBID OBESITY, LOST 110# THRU BYPASS, HAVE GAINED 30# ARTHRITIS SCIATICA HYPERLIPIDEMIA COLON POLYPS FIRST COLONOSCOPY (AGE 49) 2004 ANEMIA C DIFF ALLERGIES MACROBID: NAUSEA/VOMITING - SIDE EFFECTS ENVIRONMENTAL ALLERGIES SOCIAL HISTORY GENERAL: TOBACCO USE ARE YOU A:NONSMOKER LATEX QUESTIONNAIRE LATEX ALLERGY : HAVE YOU EVER DEVELOPED ANY TYPE OF REACTION AFTER HANDLING LATEX PRODUCTS SUCH RUBBER GLOVES, CONDOMS, DIAPHRAGMS, BALLOONS, SOCKS, OR UNDERWEAR?NO LATEX ALLERGY : HAVE YOU EVER DEVELOPED ANY TYPE OF REACTION DURING OR AFTER DENTAL APPOINTMENT, VAGINAL/RECTAL EXAMINATION, SURGICAL PROCEDURE, OR ANY OTHER EXPOSURE?NO LATEX RISK : HAVE YOU EVER HAD ANY DIFFICULTY BREATHING OR HIVES AFTER EATING OR HANDLING ANY FRUITS, OR VEGETABLES; SUCH KIWI, BANANAS, STONE FRUITS, OR CHESTNUTSNO LATEX RISK : DO YOU HAVE A PREVIOUS PERSONAL HISTORY OF MORE THAN NINE SURGERIES, SPINA BIFIDA, OR REPEATED CATHERIZATIONS? NO LATEX RISK : ARE YOU FREQUENTLY EXPOSED TO LATEX PRODUCTS IN YOUR OCCUPATION?NO DATE ASKED : 11/02/2020 ALCOHOL USE: YES. BMI CARE GOAL FOLLOW-UP ABOVE NORMAL BMI FOLLOW-UPGIVING ENCOURAGEMENT TO EXERCISE ALCOHOL SCREENING DID YOU HAVE A DRINK CONTAINING ALCOHOL IN THE PAST YEAR?YES HOW OFTEN DID YOU HAVE SIX OR MORE DRINKS ON ONE OCCASION IN THE PAST YEAR?NEVER (0 POINTS) HOW MANY DRINKS DID YOU HAVE ON A TYPICAL DAY WHEN YOU WERE DRINKING IN THE PAST YEAR?1 OR 2 (0 POINTS) HOW OFTEN DID YOU HAVE A DRINK CONTAINING ALCOHOL IN THE PAST YEAR?TWO TO FOUR TIMES A MONTH (2 POINTS) POINTS2 INTERPRETATIONNEGATIVE RECREATIONAL DRUG USE DENIES. CAFFEINE NONE. 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 DIET: REGULAR, NO HX EATING DISORDER. EXERCISE: 2 X WK, WALKS. MARITAL STATUS: , PASSED IN 1990 ([facility]) AT 34. OTHERS AT HOME: LIVES ALONE. REVIEW OF SYSTEMS GLAUCOMA: NOTHYROID DISEASE: NOHYPERTENSION: NOHEART DISEASE: NOLUNG DISEASE: HISTORY OF BRONCHITIS DIABETES: NOGI DISEASE: HISTORY OF C. DIFF FOLLOWING ANTIBIOTICS LIVER DISEASE: NO KIDNEY DISEASE: NOSTERIOD USE: NONEUROLOGICAL DISEASE: NOBACK PROBLEMS: NOEXTREMITIES: NOGENITOURINARY: HISTORY OF UTIBLEEDING DISORDER: NOASA CLASS: II AIRWAY CLASS: I. VITAL SIGNS WT 222.4 LBS, HT 63.25 IN, BMI 39.08 INDEX, BP 127/64 MM HG, HR 106 /MIN, RR 18 /MIN, TEMP 96.0 F, OXYGEN SAT % 96%, SAFE IN ENV? (Y/N) YES, NA INITIALS AW 1416, REVIEWED BY: Antoinette VILLANUEVA RN. EXAMINATION GENERAL EXAMINATION: THERE IS TENDERNESS IN THE LATERAL ASPECT OF THE LEFT KNEE. THE PATIENT IS LIMPING FROM THE LEFT LEG. HER WALK IS ANTALGIC. THE PATIENT IS ALERT, ORIENTED TIMES THREE AND COOPERATIVE. MRI OF THE LEFT KNEE 11/26 IS SHOWING SOME TEARS AND CHONDROMALACIA. 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 ONEIL. WE AGREE ON DOING A LEFT DIAGNOSTIC KNEE BLOCK IN THE OR WITH PROPOFOL DUE TO THE DISCOMFORT ASSOCIATED WITH THE PROCEDURE. THE PATIENT REPORTS UNDERSTANDING AND AGREES WITH THE PLAN. I, KAYLA BLAKE, DOCUMENTED THE ABOVE INFORMATION ACTING A SCRIBE FOR DR. DEL VALLE. I HAVE REVIEWED THE ABOVE DOCUMENT, WRITTEN BY KAYLA BLAKE, SCRAP PREPARER, AND I VERIFY THAT IT IS ACCURATE. PROCEDURE CODES FA211 ESTABILISHED PATIENT [facility] CHARGE 55410 OFFICE/OUTPATIENT VISIT EST DISPOSITION & COMMUNICATION FOLLOW UP F/UP 2 WEEKS AFTER 12/20 (REASON: POST LEFT DIAGNOSTIC KNEE BLOCK #1) ELECTRONICALLY SIGNED BY BRANDAN DEL VALLE MD, ON 12/12/2020 AT 03:14 PM EDT DISCLAIMER : THIS IS A VISIT SUMMARY EXTRACTED FROM THE [employer] CHART. IT IS NOT A COPY OF THE [employer] PROGRESS NOTE. MTDD
== END ==
LOC: M PAIN 14:15
PROVIDERS: ATTEND Anesthesiology
DX: M94.262 Chondromalacia, left knee (principal); M25.562 Pain in left knee; G89.29 Other chronic pain; K21.9 Gastro-esophageal reflux disease without esophagitis; Z88.1 Allergy status to other antibiotic agents; Z79.899 Other long term (current) drug therapy

== ENCOUNTER → 2020-12-20 | Outpatient (CLI) | payer MEDICARE ==
[~2020-12-20] MED LIST changes: +AMOX500C PO; +ATOR80TA59; +CITRTAB18 PO; +PRES10CA2 PO
== END ==
LOC: M LABSMTC 12:34
PROVIDERS: ATTEND Anesthesiology
DX: Z01.812 Encounter for preprocedural laboratory examination (principal); Z20.822 Contact with and (suspected) exposure to COVID-19

== ENCOUNTER 2020-12-25 10:41 | Day surgery (SDC) | payer MEDICARE ==
[~2020-12-25] VITALS: Ht 162.6 cm; Wt 102.4 kg
[~2020-12-25 10:41] MED LIST changes: +LR 1,000 ML IV ONE
[2020-12-25] MEDS ORDERED: propofoL 200 MG/20 ML VIAL As Ordered ONE (13:21)
[2020-12-25] MEDS ORDERED: LIDOCAINE 2% 100MG/5ML SDV (FOR ANES.) As Ordered ONE (13:26)
[2020-12-25] MEDS ORDERED: ISOVUE-300 61% 50ML VIAL As Ordered ONE (13:28)
[2020-12-25] MEDS ORDERED: LIDOCAINE 1% SDV 30ML VIAL As Ordered ONE (13:28)
[2020-12-25] MEDS ORDERED: BUPIVACAINE HCL 0.5% 10ML VIAL As Ordered ONE (13:28)
[2020-12-25] MEDS ORDERED: BUPIVACAINE HCL 0.25% 10ML VIAL As Ordered ONE (13:48)
[2020-12-25 16:05] VITALS: BP 129/71
--- NOTE | 2020-12-25 16:14 | REP ---
INDICATION: CHONDROMALACIA, LEFT KNEE. COMPARISON: None. TECHNIQUE: Six views. 242.4 seconds of fluoroscopy time is reported. FINDINGS: A sequence of 6 last image hold fluoroscopically obtained spot radiographs taken about the left knee document various needle positions and contrast injections associated with injection procedure. IMPRESSION: Procedural imaging. <Electronically signed by Kvng Arboleda > 12/25/20 1268
== END 2020-12-25 16:20 | disposition home or self-care (01) ==
LOC: M SDC 10:41
PROVIDERS: ATTEND Anesthesiology
DX: M94.262 Chondromalacia, left knee (principal); M25.562 Pain in left knee; E78.5 Hyperlipidemia, unspecified; K21.9 Gastro-esophageal reflux disease without esophagitis; J45.909 Unspecified asthma, uncomplicated; Z79.899 Other long term (current) drug therapy; Z88.8 Allergy status to other drugs, medicaments and biological substances
CPT/HCPCS: 64454; 76000; Q9967

== ENCOUNTER → 2021-01-09 | Outpatient (CLI) | payer MEDICARE ==
[~2021-01-09] MED LIST changes: -LR 1,000 ML IV ONE
--- NOTE | 2021-01-11 02:54 | ECWPNPC ---
PATIENT NAME: FILI ONEIL : 1955 GENDER: FEMALE VISIT DATE: 01/09/2021 DISCHARGE DATE: 01/09/21 1150 VISIT LOCKED DATE TIME: PHYSICIAN: MARLENY ROSALES RESOURCE: MARLENY ROSALES REASON FOR APPOINTMENT 1. POST LEFT DIAGNOSTIC KNEE BLOCK #1 HISTORY OF PRESENT ILLNESS GENERAL: HERE FOR POST PROCEDURE FOLLOW-UP. HAD LEFT KNEE DIAGNOSTIC TESTING ON 12/25/2020. PATIENT REPORTS SEVERE PAIN AND NO USE OF PROPOFOL PLANNED. SHE REFUSES TO HAVE THIS DONE AGAIN. SHE IS GETTING SOME THERAPEUTIC EFFECT FROM THE TEST. PAIN INCREASES WITH ACTIVITY. -. FALL RISK SCREENING: SCREENING : NO FALLS REPORTED IN THE LAST YEAR. PAIN SCREENING: PATIENT HAS A COMPLAINT OF ACUTE OR CHRONIC PAIN :YES LOCATION OF PAIN:KNEES LEFT KNEE INTENSITY OF PAIN (SCALE OF 1 TO 10):0 WHAT DOES YOUR PAIN FEEL LIKE:OTHER NOT FEELING ANY PAIN TODAY DURATION:ONLY WITH SPECIFIC ACTIVITIES PAIN IS INCREASED BY:ACTIVITIES, PROLONGED STANDING PAIN IS DECREASED BY:SITTING NURSING NOTE: -. PAIN CENTER INTAKE QUESTIONS: DO YOU HAVE A HISTORY OF MRSA? :NO DO YOU TAKE A BLOOD THINNERS? :NO DO YOU HAVE ANY BLEEDING DISORDERS? :NO ANY NEW NUMBNESS OR WEAKNESS IN YOUR LEGS OR ARMS? :NO ANY PACEMAKER,DEFIBRILLATOR, OR DORSAL COLUMN STIMULATOR? :NO DO YOU HAVE ANY RASHES OR OPEN SORES? :NO ARE YOU ALLERGIC TO IV DYE? :NO ARE YOU DIABETIC? :NO ANY NEW PROBLEMS WITH YOUR MEDICATIONS? :NO HAVE YOU RECEIVED A VACCINE IN THE PAST 30 DAYS? :NO DO YOU PLAN TO RECEIVE A VACCINE IN THE NEXT 21 DAYS? :NO DO YOU NEED ANY PRESCRIPTION? :NO DO YOU TAKE ANY IMMUNOSUPPRESSIVE MEDICATIONS? :NO CURRENT MEDICATIONS TAKING ATORVASTATIN CALCIUM 80 MG TABLET 1 TABLET ORALLY ONCE A DAY TAKING CO Q-10 200 MG CAPSULE 1 CAPSULE WITH A MEAL ORALLY ONCE A DAY TAKING TRAMADOL HCL 50 MG TABLET 1 TABLET NEEDED ORALLY TAKING CARISOPRODOL 350 MG TABLET 1 TABLET NEEDED ORALLY FOUR TIMES A DAY TAKING OMEPRAZOLE 20MG 20MG CAPSULE 1 CAP(S) P.O. ONCE A DAY TAKING TYLENOL EXTRA STRENGTH 500 MG TABLET 1 TABLET NEEDED ORALLY EVERY 6 HRS TAKING PROAIR HFA 108 (90 BASE) MCG/ACT AEROSOL SOLUTION 2 PUFF NEEDED INHALATION TAKING MULTIVITAMIN - TABLET W/ IRON; 2 TABLETS ORALLY ONCE A DAY TAKING BIOTIN 1000 MCG TABLET 2 TABLET ORALLY ONCE A DAY TAKING CITRACAL +D3 250-107-500 MG-MG-UNIT TABLET CHEWABLE 1 TAB ORALLY BID TAKING SINGULAIR 10 MG TABLET 1 TABLET ORALLY ONCE A DAY TAKING HAIR SKIN NAILS - CAPSULE DIRECTED ORALLY DAILY TAKING ARTIFICIAL TEAR 1 DROP NEEDED TAKING XYZAL ALLERGY 24HR 5 MG TABLET 1 TABLET IN THE EVENING ORALLY DAILY TAKING VITAMIN B12 5000 MCG 1 TABLET ORALLY DAILY TAKING ALIGN - CAPSULE DIRECTED ORALLY DAILY TAKING AMOXICILLIN 500 MG TABLET 4 TABLET ORALLY NEEDED TIMES A DAY NOT-TAKING SHINGRIX 50 MCG/0.5 ML SUSPENSION DIRECTED INTRAMUSCULAR _ NOT-TAKING MONTELUKAST SODIUM 10 MG TABLET 1 TABLET ORALLY ONCE A DAY, NOTES: DUPLICATE NOT-TAKING CA CIT-VIT D-VIT K-MINERALS 200 MG TABLET DIRECTED ORALLY , NOTES: DUPLICATE NOT-TAKING PROBIOTIC - CAPSULE DIRECTED ORALLY NOT-TAKING LIPITOR 80 MG TABLET 1 TABLET ORALLY ONCE A DAY, NOTES: DUPLICATE NOT-TAKING SHINGRIX 50 MCG/0.5 ML SUSPENSION DIRECTED INTRAMUSCULAR _, NOTES: DUPLICATE NOT-TAKING LEVOCETIRIZINE DIHYDROCHLORIDE 5 MG TABLET 1 TABLET IN THE EVENING ORALLY ONCE A DAY NOT-TAKING MAGNESIUM 400 MG CAPSULE DIRECTED ORALLY NOT-TAKING SINGULAIR 10 MG TABLET 1 TABLET ORALLY ONCE A DAY NOT-TAKING SOMA 350 MG TABLET 1 TABLET NEEDED ORALLY NOT-TAKING BIOTIN 21680 MCG MEDICATION LIST REVIEWED AND RECONCILED WITH THE PATIENT PAST MEDICAL HISTORY POSTMENOPAUSE GERD ENVIRONMENTAL ALLERGIES MORBID OBESITY, LOST 110# THRU BYPASS, HAVE GAINED 30# ARTHRITIS SCIATICA HYPERLIPIDEMIA COLON POLYPS FIRST COLONOSCOPY (AGE 49) 2004 ANEMIA C DIFF ALLERGIES MACROBID: NAUSEA/VOMITING - SIDE EFFECTS ENVIRONMENTAL ALLERGIES: NAUSEA - ALLERGY SOCIAL HISTORY GENERAL: TOBACCO USE ARE YOU A:NONSMOKER LATEX QUESTIONNAIRE LATEX ALLERGY : HAVE YOU EVER DEVELOPED ANY TYPE OF REACTION AFTER HANDLING LATEX PRODUCTS SUCH RUBBER GLOVES, CONDOMS, DIAPHRAGMS, BALLOONS, SOCKS, OR UNDERWEAR?NO LATEX ALLERGY : HAVE YOU EVER DEVELOPED ANY TYPE OF REACTION DURING OR AFTER DENTAL APPOINTMENT, VAGINAL/RECTAL EXAMINATION, SURGICAL PROCEDURE, OR ANY OTHER EXPOSURE?NO LATEX RISK : HAVE YOU EVER HAD ANY DIFFICULTY BREATHING OR HIVES AFTER EATING OR HANDLING ANY FRUITS, OR VEGETABLES; SUCH KIWI, BANANAS, STONE FRUITS, OR CHESTNUTSNO LATEX RISK : DO YOU HAVE A PREVIOUS PERSONAL HISTORY OF MORE THAN NINE SURGERIES, SPINA BIFIDA, OR REPEATED CATHERIZATIONS? NO LATEX RISK : ARE YOU FREQUENTLY EXPOSED TO LATEX PRODUCTS IN YOUR OCCUPATION?NO DATE ASKED : 01/09/2021 ALCOHOL USE: YES, WINE. BMI CARE GOAL FOLLOW-UP ABOVE NORMAL BMI FOLLOW-UPGIVING ENCOURAGEMENT TO EXERCISE ALCOHOL SCREENING DID YOU HAVE A DRINK CONTAINING ALCOHOL IN THE PAST YEAR?YES HOW OFTEN DID YOU HAVE SIX OR MORE DRINKS ON ONE OCCASION IN THE PAST YEAR?NEVER (0 POINTS) HOW MANY DRINKS DID YOU HAVE ON A TYPICAL DAY WHEN YOU WERE DRINKING IN THE PAST YEAR?1 OR 2 (0 POINTS) HOW OFTEN DID YOU HAVE A DRINK CONTAINING ALCOHOL IN THE PAST YEAR?TWO TO FOUR TIMES A MONTH (2 POINTS) POINTS2 INTERPRETATIONNEGATIVE RECREATIONAL DRUG USE DENIES. CAFFEINE NONE. 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 DIET: REGULAR, NO HX EATING DISORDER. EXERCISE: 2 X WK, WALKS. MARITAL STATUS: , PASSED IN 1990 ([facility]) AT 34. OTHERS AT HOME: LIVES ALONE. REVIEW OF SYSTEMS CONSTITUTIONAL: ANY RECENT FEVER NO . CHILLS NO . WEIGHT CHANGE OF UNKNOWN REASONS NO . GASTROENTEROLOGY: NEW UNEXPLAINABLE CHANGES IN BOWEL CONTROL NO . CONSTIPATION NO . GENITOURINARY: ANY NEW CHANGE IN BLADDER CONTROL? NO . NEUROLOGY: NEW ONSET DIZZINESS OR NEUROLOGICAL CHANGES NOT MENTIONED NO . NEW NUMBNESS OR PAIN PATTERNS NOT MENTIONED AND PERTINENT TO TODAY'S VISIT NO . CARDIOLOGY: NEW CHEST PRESSURE NO . PATIENT DENIES NO . RESPIRATORY: UNEXPLAINABLE COUGH NO . NEW SHORTNESS OF BREATH NO . VITAL SIGNS WT 223 LBS, HT 63.25 IN, BMI 39.19 INDEX, BP 142/75 MM HG, HR 116 /MIN, RR 18 /MIN, TEMP 96.2 F, OXYGEN SAT % 98%, SAFE IN ENV? (Y/N) YES, NA INITIALS ME 11:17T.ROCK SHARIF. EXAMINATION GENERAL EXAMINATION: GENERALAWAKE,ALERT ,PLEASANT . PSYCHAFFECT NORMAL . LUNGS:LUNG PEACOCK ARE CLEAR TO AUSCULTATION BILATERALLY. GOOD MOVEMENT OF AIR . HEART:S1, S2 IN A REGULAR RATE AND RHYTHM. NO SIGNIFICANT MURMURS, RUBS OR GALLOPS NOTED . ASSESSMENTS OTHER CHRONIC PAIN - G89.29 (PRIMARY) LEFT KNEE PAIN - M25.562 TREATMENT OTHER CHRONIC PAIN PAIN PROCEDURE LOGDATE OF PROCEDURE1PROCEDURE:LEFT KNEE GENICULARS NERVES DIAGNOSTIC BLOCK #1AMOUNT OF PRE SEDATEORRESULT:SEVERE PAIN WITH PROCEDURE. GETTING A THERAPEUTIC RESPONSE SINCE THE PROCEDURE. REFUSES TO HAVE SECOND DIAGNOSTIC TEST OR RADIOFREQUENCY PROCEDURE DUE TO HER EXPERIENCE WITH DIAGNOSTIC TESTING IN THE OR. PROCEDURE CODES [id number] ESTABILISHED PATIENT [facility] CHARGE DISPOSITION & COMMUNICATION FOLLOW UP PATIENT WILL CALL IF NECESSARY (REASON: PATIENT WILL CALL FOR FOLLOW-UP IS NECESSARY. LEFT KNEE PAIN) ELECTRONICALLY SIGNED BY LUCINDA LONDON ON 01/10/2021 AT 02:28 PM EDT DISCLAIMER : THIS IS A VISIT SUMMARY EXTRACTED FROM THE [employer] CHART. IT IS NOT A COPY OF THE [employer] PROGRESS NOTE. SUZE
== END ==
LOC: M PAIN 11:15
PROVIDERS: ATTEND Nurse Practitioner Family
DX: M25.562 Pain in left knee (principal); G89.29 Other chronic pain; K21.9 Gastro-esophageal reflux disease without esophagitis; Z88.1 Allergy status to other antibiotic agents; Z79.899 Other long term (current) drug therapy

== ENCOUNTER → 2021-11-01 | Outpatient (CLI) | payer MEDICARE ==
[~2021-11-01] MED LIST changes: +OMEP20TA2 PO; -OMEP20TA9 PO
[2021-11-01 16:53] LABS: BASO % 0.3 % (0.0-1.0); EOS # 0.1 10^3/uL (0.0-0.5); EOS % 0.9 % (0.0-3.0); HEMATOCRIT 40.4 % (36.0-47.0); HEMOGLOBIN 13.3 g/dl (12.0-15.5); LYMPH # 1.5 10^3/uL (1.5-5.0); LYMPH % 26.2 % (24.0-44.0); MEAN CORPUSCULAR HEMOGLOBIN 31.8 pg (27.0-33.0); MEAN CORPUSCULAR HGB CONC 32.9 g/dl (32.0-36.5); MEAN CORPUSCULAR VOLUME 96.7 fl (80.0-96.0); MONO # 0.6 10^3/uL (0.0-0.8); MONO % 10.8 % (2.0-8.0); NEUTROPHILS # 3.6 10^3/uL (1.5-8.5); NEUTROPHILS % 61.5 % (36.0-66.0); PLATELET COUNT, AUTOMATED 224 10^3/uL (150-450); RED BLOOD COUNT 4.18 10^6/uL (4.00-5.40); WHITE BLOOD COUNT 5.9 10^3/uL (4.0-10.0)
== END ==
LOC: M WUC 15:09
PROVIDERS: ATTEND Physician Assistant
DX: R30.0 Dysuria (principal); R50.9 Fever, unspecified

== ENCOUNTER → 2022-01-11 | Outpatient (CLI) | payer MEDICARE ==
[2022-01-11 11:19] LABS: HEMATOCRIT 39.3 % (36.0-47.0); HEMOGLOBIN 12.9 g/dl (12.0-15.5); MEAN CORPUSCULAR HEMOGLOBIN 32.3 pg (27.0-33.0); MEAN CORPUSCULAR HGB CONC 32.8 g/dl (32.0-36.5); MEAN CORPUSCULAR VOLUME 98.5 fl (80.0-96.0); PLATELET COUNT, AUTOMATED 206 10^3/uL (150-450); RED BLOOD COUNT 3.99 10^6/uL (4.00-5.40); WHITE BLOOD COUNT 4.3 10^3/uL (4.0-10.0)
[2022-01-11 12:04] LABS: INR 0.9; PROTHROMBIN TIME 12.6 SECONDS (12.7-14.5)
[2022-01-11 12:06] LABS: ALBUMIN 3.7 GM/DL (3.2-5.2); ALT/SGPT 39 U/L (12-78); BILIRUBIN,TOTAL 0.9 MG/DL (0.2-1.0); BLOOD UREA NITROGEN 19 MG/DL (7-18); CALCIUM LEVEL 9.7 MG/DL (8.8-10.2); CARBON DIOXIDE LEVEL 30 MEQ/L (21-32); CHLORIDE LEVEL 110 MEQ/L (98-107); CREATININE FOR GFR 0.68 MG/DL (0.55-1.30); GLOMERULAR FILTRATION RATE > 60.0 (>45); GLUCOSE, FASTING 106 MG/DL (70-100); POTASSIUM SERUM 3.9 MEQ/L (3.5-5.1); SODIUM LEVEL 146 MEQ/L (136-145); TOTAL PROTEIN 6.2 GM/DL (6.4-8.2)
[2022-01-11 12:22] LABS: ERYTHROCYTE SEDIMENTATION RATE 10 mm/hr (0-30)
== END ==
LOC: M RAD 10:27
PROVIDERS: ATTEND Orthopaedic Surgery
DX: Z01.818 Encounter for other preprocedural examination (principal); M17.12 Unilateral primary osteoarthritis, left knee; I45.10 Unspecified right bundle-branch block; K92.9 Disease of digestive system, unspecified

== ENCOUNTER 2022-03-04 11:39 | Outpatient (RCR) | payer MEDICARE | END 2022-03-07 | LOC: M PT 11:39 | PROVIDERS: ATTEND Orthopaedic Surgery | DX: Z47.1 Aftercare following joint replacement surgery (principal); Z96.652 Presence of left artificial knee joint ==

== ENCOUNTER 2022-03-15 11:35 | Outpatient (RCR) | payer MEDICARE | END 2022-04-07 | LOC: M PT 11:35 | PROVIDERS: ATTEND Orthopaedic Surgery | DX: Z47.1 Aftercare following joint replacement surgery (principal) ==

== ENCOUNTER → 2022-07-03 | Outpatient (REF) | payer MEDICARE | LOC: M SFHCDERM 15:16 | PROVIDERS: ATTEND Physician Assistant | DX: C44.329 Squamous cell carcinoma of skin of other parts of face (principal) ==

== ENCOUNTER → 2022-07-05 | Outpatient (CLI) | payer MEDICARE | LOC: M WHC 11:21 | PROVIDERS: ATTEND Obstetrics & Gynecology | DX: Z12.31 Encounter for screening mammogram for malignant neoplasm of breast (principal); Z13.820 Encounter for screening for osteoporosis; M85.851 Other specified disorders of bone density and structure, right thigh; M85.852 Other specified disorders of bone density and structure, left thigh ==

== ENCOUNTER → 2023-03-05 | Outpatient (REF) | payer MEDICARE ==
[~2023-03-05] MED LIST changes: +MONT-5 PO; -SING10TA32 PO
[2023-03-05 14:29] LABS: URIC ACID 5.6 MG/DL (3.1-7.8)
[2023-03-05 14:31] LABS: ALBUMIN 3.9 G/DL (3.2-5.2); ALKALINE PHOSPHATASE 73 U/L (46-116); ALT/SGPT 34 U/L (7.0-40); AST/SGOT 29 U/L (<34); BILIRUBIN,TOTAL 0.9 MG/DL (0.3-1.2); BLOOD UREA NITROGEN 16 MG/DL (9-23); CALCIUM LEVEL 8.8 MG/DL (8.3-10.6); CARBON DIOXIDE LEVEL 29 MMOL/L (20-31); CHLORIDE LEVEL 107 MMOL/L (98-107); CHOLESTEROL LEVEL 173 MG/DL (<200); CHOLESTEROL RISK RATIO 2.43 (<5); CREATININE FOR GFR 0.79 MG/DL (0.55-1.30); GLOMERULAR FILTRATION RATE > 60.0 (>45); GLUCOSE, FASTING 94 MG/DL (74-106); POTASSIUM SERUM 4.2 MMOL/L (3.5-5.1); SODIUM LEVEL 143 MMOL/L (136-145); TRIGLYCERIDES LEVEL 130 MG/DL (<150)
== END ==
LOC: M LAB REF 12:56
PROVIDERS: ATTEND Internal Medicine
DX: E78.2 Mixed hyperlipidemia (principal); M79.672 Pain in left foot

== ENCOUNTER → 2023-04-02 | Outpatient (REF) | payer MEDICARE | LOC: M SFHCDERM 17:38 | PROVIDERS: ATTEND Physician Assistant | DX: L57.0 Actinic keratosis (principal) ==

== ENCOUNTER 2024-04-08 08:22 | Day surgery (SDC) | payer MEDICARE ==
[~2024-04-08] VITALS: Ht 160 cm; Wt 97.8 kg
[~2024-04-08 08:22] MED LIST changes: +ALIG4CAP PO; +ARTIDRO4 OD; -ATOR80TA59; +ATOR80TA59 PO; +CARI1TAB7 PO; +COQ1200C3 PO; +COQ150CH PO; +HAIRTAB10 PO; +MAGN200T PO; +MULT18TA PO; +NS 1,000 ML IV ONE; -ONE-1TAB PO; +PROA1AER2 INH; +VITA1TAB61 PO; +ZADI1DRO OD; +[UNRECOGNIZED DRUG - CODE] PO; +prevagen PO
[2024-04-08] MEDS ORDERED: LIDOCAINE 2% 100MG/5ML SDV (FOR ANES.) As Ordered ONE (09:13)
[2024-04-08] MEDS ORDERED: propofoL 200 MG/20 ML VIAL As Ordered ONE (09:13)
[2024-04-08 10:39] VITALS: TEMP 98.2
[2024-04-08 10:51] VITALS: BP 133/60; O2SAT 97
== END 2024-04-08 10:57 | disposition home or self-care (01) ==
LOC: M OPP 08:22
PROVIDERS: ATTEND Internal Medicine Gastroenterology
DX: Z12.11 Encounter for screening for malignant neoplasm of colon (principal); Z80.0 Family history of malignant neoplasm of digestive organs; D12.2 Benign neoplasm of ascending colon; K64.8 Other hemorrhoids; K57.30 Diverticulosis of large intestine without perforation or abscess without bleeding; J45.909 Unspecified asthma, uncomplicated; Z98.84 Bariatric surgery status; Z79.02 Long term (current) use of antithrombotics/antiplatelets; Z79.1 Long term (current) use of non-steroidal anti-inflammatories (NSAID); Z79.891 Long term (current) use of opiate analgesic; Z88.6 Allergy status to analgesic agent; Z88.8 Allergy status to other drugs, medicaments and biological substances

== ENCOUNTER → 2025-04-07 | Outpatient (CLI) | payer MEDICARE ==
[~2025-04-07] MED LIST changes: -ALIG4CAP PO; +ALIG4CAP3 PO; +CARI-555 PO; -CARI1TAB7 PO; -MULT200T7 PO; +MULT200T9 PO; -NS 1,000 ML IV ONE; +OMEP-611 PO; -OMEP20TA2 PO; -PRAV80TA2 PO; +PRAV80TA75 PO
== END ==
LOC: M WUC 13:17
PROVIDERS: ATTEND Nurse Practitioner Family
DX: M19.072 Primary osteoarthritis, left ankle and foot (principal); M77.32 Calcaneal spur, left foot; M25.572 Pain in left ankle and joints of left foot

== ENCOUNTER → 2025-06-14 | Outpatient (REF) | payer MEDICARE | LOC: M LAB REF 17:15 | PROVIDERS: ATTEND Nurse Practitioner Family | DX: R30.0 Dysuria (principal) ==